=== PATIENT | female | born 1955 | race Asian ===

== ENCOUNTER → 2017-06-10 06:00 | Outpatient (CLI) | payer OTHER, SELFPAY ==
[2017-06-09 15:01] LABS: Absolute Lymphocyte Count 1.86 X10^3/ul (0.83-4.51); Absolute Neutrophil Count 2.7 X10^3/uL (2.0-7.7); Basophil# 0.05 X10^3/uL; Eosinophil# 0.09 X10^3/uL; Eosinophils% 1.7 % (0-5); Hematocrit 38.5 % (37-47); Lymphocyte # 1.86 X10^3/ul (4.0); Lymphocyte % 35.9 % (19-41); Mean Corp Hgb Conc 33.8 g/gl (32-36); Mean Corpuscular Hgb 31.4 pg (27.0-32.0); Mean Platelet Vol. 10.8 fl (6.2-12.0); Monocyte% 9.7 % (0-10); Neutrophil # 2.67 X10^3/uL (2.7-7.7); Neutrophil % 51.5 % (47-70); Platelet Count 238 K/mm3 (150-450); RBC Distribution Width CV 12.1 % (11.6-14.6); RBC Distribution Width SD 40.5 fl (35.1-43.9); Red Blood Count 4.14 M/mm3 (4.2-5.4); White Blood Count 5.2 K/mm3 (4.4-11.0)
[2017-06-09 15:03] LABS: POSITIVE COUNT NO; POSITIVE DIFFERENTIAL NO; POSITIVE MORPHOLOGY NO
[2017-06-09 15:23] LABS: AST(SGOT) 14 U/L (15-37); Alanine Aminotransfer ALT/SGPT 21 U/L (13-56); Albumin, Serum 3.9 g/dL (3.2-5.0); Alkaline Phosphatase 89 U/L (45-117); Anion Gap 7 (5-15); BUN 16 mg/dL (7-18); BUN/Creat Ratio 32.9 RATIO (10-20); Calcium,Total 8.9 mg/dL (8.5-10.1); Chloride 105 mmol/L (98-107); Creatinine, Serum 0.49 mg/dL (0.55-1.02); EST Glomerular Filtration Rate 137 mL/min (>60); Est Glom Filt Rate - Afr Amer 166 mL/min (>60); Globulin 3.8 g/dL (2.2-4.2); Glucose 82 mg/dL (70-110); Potassium 3.8 mmol/L (3.5-5.1); Protein, Total 7.7 g/dL (6.4-8.2); Sodium Level 139 mmol/L (136-145)
[2017-06-09 16:34] VITALS: BMI 21.6
--- NOTE | 2017-06-10 07:00 | CT_ITS ---
STUDY: CT ABDOMEN AND PELVIS WITH CONTRAST REASON FOR EXAM: Female, 61 years old. Follow-up examination for ovarian cancer. RADIATION DOSAGE (If Supplied By Facility): CTDIvol = ( 10.11 ) mGy, DLP = ( 866.29 ) mGycm TECHNIQUE: Transaxial images were obtained from the dome of the diaphragm to the symphysis pubis without oral contrast. 75 ml of Isovue 300 contrast was administered. Sagittal and coronal images were reconstructed. Individualized dose optimization techniques were used for this CT. COMPARISON: Comparison is made with prior study dated December 13, 2016. FINDINGS: The visualized lung bases are unremarkable. The visualized portions of the heart are within normal limits. Normal liver. Normal gallbladder and extrahepatic biliary system. Normal spleen. Normal pancreas. Normal bilateral adrenal glands. There is a 1.4 cm cyst in the lower pole of the right kidney. Normal left kidney. Normal visualized stomach. Normal small intestine. Normal colon. The appendix is visualized and appears normal. There is scattered atherosclerotic calcification of the abdominal aorta, without a demonstrated aneurysm. Normal inferior vena cava. Surgical clips are seen in the retroperitoneal region most likely secondary to prior lymphadenectomy. Normal urinary bladder. There is absence of the uterus consistent with a prior hysterectomy. Normal abdominal wall. There are degenerative changes of the visualized lumbar spine. There is straightening of the normal lumbar lordosis. CT/Abdomen/Pelvis WITH Contrast IMPRESSION: Small right renal cyst. No acute abnormality is seen. Electronically Signed: Kraig Molina MD at 14:28 EST Tel [phone], Service support ,
--- NOTE | 2017-06-10 07:00 | CT_ITS ---
STUDY: CT CHEST WITH CONTRAST REASON FOR EXAM: Female, 61 years old. Follow-up for ovarian cancer. RADIATION DOSAGE (If Supplied By Facility): CTDIvol = ( 10.11 ) mGy, DLP = ( 866.29 ) mGycm TECHNIQUE: Transaxial imaging was performed following intravenous administration of 75 ml of Isovue 300 contrast material. Multiplanar coronal and sagittal images were reformatted. Individualized dose optimization techniques were used for this CT. COMPARISON: Comparison is made with prior study dated December 13, 2016. FINDINGS: Minimal scarring in the left upper lobe. This is unchanged. There is a 1 cm faint nodular density in the superior segment of the right lower lobe as seen on axial image #58. This previously measured 7.3 mm. Stable 5 mm nodule in the posterior aspect of the right lower lobe. There is no demonstrated pleural abnormality. Normal heart and pericardium. Normal mediastinum. Normal hilar regions. Normal enhanced pulmonary arteries. Normal aorta arch and descending thoracic aorta. There is demineralization of the thoracic spine. There is no demonstrated abnormality of the visualized upper abdomen. CT/Chest WITH Contrast IMPRESSION: Slight increase in size of the nodular density in the superior segment of the right lower lobe. Further follow-up is recommended. Electronically Signed: Kraig Molina MD at 14:36 EST Tel [phone], Service support ,
[2017-06-11 09:00] LABS: Cancer Antigen 125 2303 5.8 U/mL (0.0-38.1)
== END ==
PROVIDERS: Family Provider Family Medicine; PCP Family Medicine; Visit Provider Internal Medicine Medical Oncology
DX: C56.9 Malignant neoplasm of unspecified ovary (principal)
CPT/HCPCS: 36415; 71260; 74177; 80053; 85025; 86304; Q9967; A4216

== ENCOUNTER → 2017-09-19 06:55 | Outpatient (CLI) | payer OTHER, SELFPAY ==
--- NOTE | 2017-09-19 06:57 | CT_ITS ---
STUDY: CT CHEST WITHOUT CONTRAST REASON FOR EXAM: Female, 61 years old. Follow-up for pulmonary nodule. History of ovarian cancer. RADIATION DOSAGE (If Supplied By Facility): CTDIvol = ( 7.06 ) mGy, DLP = ( 268.32 ) mGycm TECHNIQUE: Transaxial imaging was performed without the administration of intravenous contrast material. Multiplanar coronal and sagittal images were reformatted. Individualized dose optimization techniques were used for this CT. COMPARISON: Comparison is made with prior study dated June 10, 2017. FINDINGS: Stable small benign-appearing bilateral axillary lymph nodes. Mild degree of emphysematous changes in the upper lobes. Stable mild degree of linear scarring in the left apex and left upper lobe. Faint nodular density seen in the lateral aspect of the superior segment of the right lower lobe as seen on axial image #60. It presently measures 1.1 cm. Stable 5 mm noncalcified nodule in the posterior aspect of the right lower lobe as seen on axial image #79. There is no demonstrated pleural abnormality. Normal heart and pericardium. There are multiple small lymph nodes within the mediastinum, which are normal in size and morphology most compatible with reactive lymph hyperplasia. Normal hilar regions. Normal unenhanced pulmonary arteries. There is atherosclerotic calcification of the aortic arch arch . There is demineralization of the thoracic spine. There is no demonstrated abnormality of the visualized upper abdomen. CT/Chest without Contrast IMPRESSION: Stable examination of the nodule seen in the right lower lobe. Electronically Signed: Kraig Molina MD at 10:32 EDT Tel [phone], Service support ,
== END ==
PROVIDERS: Family Provider Family Medicine; PCP Family Medicine; Visit Provider Internal Medicine Medical Oncology
DX: C56.9 Malignant neoplasm of unspecified ovary (principal); R91.8 Other nonspecific abnormal finding of lung field
CPT/HCPCS: 71250

== ENCOUNTER → 2017-10-06 10:21 | Outpatient (CLI) | payer OTHER, SELFPAY ==
--- NOTE | 2017-10-06 10:00 | PET_ITS ---
EXAMINATION: FDG PET CT INDICATIONS: A 61-year-old female with history of ovarian carcinoma presenting for restaging examination and evaluation of pulmonary nodularity. COMPARISON EXAMINATION: CT of the chest report dated 09/19/17, CT of the abdomen and pelvis report dated 06/10/17. INDEX LESION SIZE SUV INTERPRETATION Right mid posterior hemithorax pulmonary parenchyma, right lower lobe 10.3 mm (frame 179) 0.9 Quantitative criteria for viable neoplasm are not fulfilled, sequential radiologic investigation recommended TECHNIQUE: Following the intravenous administration of 16.83 mCi of F-18 deoxyglucose via the right antecubital fossa, multiplanar image acquisitions of the neck, chest, abdomen and pelvis to level of mid thigh, obtained at one hour post radiopharmaceutical administration contemporaneously interpreted with the current CT of the neck, chest, abdomen and pelvis to level of mid thigh, dated 10/06/[address] of the chest report dated 09/19/17, CT of the abdomen and pelvis report dated 06/10/17 reveal: SERUM GLUCOSE LEVEL: 81 mg/dl. HEIGHT: 65 inches. WEIGHT: 130 lbs. FINDINGS: 1. Subtle increased glucose metabolism is defined in the right mid posterior hemithorax pulmonary parenchyma, superior segment of the right lower lobe generating a calculated maximum standard uptake value of 0.9. The maximal axial diameter of the corresponding parenchymal density on preview of CT of the thorax dated 10/06/17 is 10.3 mm (transverse). 2. Normal physiologic distribution of the radiopharmaceutical is apparent in the hepatic (2.5) and splenic parenchyma, both renal units, bladder and visualized intestinal tract. There is uniform distribution of the radiopharmaceutical concentration compared on the cerebellar hemispheres and cerebral cortex. Diffuse intestinal tract activity is noted throughout all four quadrants of the abdominal-pelvic retroperitoneum, mesentery consistent with normal physiologic distribution of the radiopharmaceutical. Prominent glucose concentration is observed in the descending thoracic aorta. Pertinent CT findings are as follows. CHEST: An additional subcentimeter parenchymal density noted in the lower posterobasilar lung zone and left upper anterior lung field demonstrate no evidence of discernible, quantitatively significant increased glucose metabolism. Subcentimeter bilateral axillary soft tissue densities are non-glucose avid. Atherosclerotic calcification is defined in the thoracic aorta without evidence of dilatation, aneurysm formation. Coronary arterial calcification is observed. ABDOMEN AND PELVIS: Atherosclerotic calcification is defined in the abdominal aorta without evidence of dilatation, aneurysm formation. Pelvic arterial calcification is observed. The uterus appears surgically absent. Right-left inguinal soft tissue densities with fatty hilus formation are ametabolic. SKELETAL: Degenerative changes defined in the cervical, thoracic and lumbar spine demonstrate no evidence for glucose hypermetabolism. PET/PET/CT Tumor Base -Thigh Init IMPRESSION: 1. NEGATIVE EXAMINATION. There is no definitive quantitative scintigraphic evidence of recurrent-metastatic viable neoplasm. 2. Subtle increased glucose concentration observed in the right lower posterior hemithorax pulmonary parenchyma, right lower lobe does not fulfill quantitative criteria for viable neoplasm. (Kern et al, Annals of Internal Medicine, 138:724, 2003). 3. Metabolic and/or anatomic stability may be ensured in the right lower lobe MILDLY HYPERMETABOLIC focus with repeat FDG PET study and/or CT of the thorax in three months. (Xiu, Journal of Nuclear Medicine 45:88, P2004. Carl, Seminars in Thoracic and Cardiovascular Surgery 14:292, 2002). 4. Anatomic stability may be ensured in the AMETABOLIC REMAINING bilateral hemithorax parenchymal densities with repeat CT of the chest in three months if clinically indicated. (Carl, Seminars in Thoracic and Cardiovascular Surgery 14:292, 2002). 5. Prominent glucose concentration observed in the descending thoracic aorta is commensurate with activated leukocytes associated with atherosclerotic plaque formation. (Ji et al, Clinical Nuclear Medicine 29:93, 2004). Electronic Signature Janak Mixon D.O. Electronically Signed: Janak Mixon DO at 23:51 EDT Tel , Service support ,
== END ==
PROVIDERS: Family Provider Family Medicine; PCP Family Medicine; Visit Provider Internal Medicine Medical Oncology
DX: C56.1 Malignant neoplasm of right ovary (principal); R91.8 Other nonspecific abnormal finding of lung field
CPT/HCPCS: 78815; A9552; A4216

== ENCOUNTER → 2018-01-10 07:09 | Outpatient (CLI) | payer OTHER, SELFPAY | PROVIDERS: Family Provider Family Medicine; PCP Family Medicine; Visit Provider Internal Medicine Medical Oncology | DX: R91.1 Solitary pulmonary nodule (principal); C56.9 Malignant neoplasm of unspecified ovary | CPT/HCPCS: 71250 ==

== ENCOUNTER → 2018-01-12 08:28 | Outpatient (CLI) | payer OTHER, SELFPAY ==
[2018-01-13 11:31] LABS: Cancer Antigen 125 7.4 U/mL (0.0-38.1)
== END ==
PROVIDERS: Family Provider Family Medicine; PCP Family Medicine; Visit Provider Internal Medicine Medical Oncology
DX: C56.9 Malignant neoplasm of unspecified ovary (principal); R91.1 Solitary pulmonary nodule
CPT/HCPCS: 36415; 86304

== ENCOUNTER → 2018-02-27 07:54 | Outpatient (CLI) | payer OTHER, SELFPAY ==
--- NOTE | 2018-02-27 16:13 | PFTCOMP_ITS ---
COMPLETE PULMONARY FUNCTION TEST INTERPRETATION Brief HPI: Patient is a 62 year old female, currently under the care of [facility]ac[facility], who presents to [facility] for complete pulmonary function tests secondary to diagnosis of lung nodule. Respiratory therapist reports good effort and reproducible results. Interpretation: Forced expiration spirometry shows no large airways obstructive ventilatory defect with an FEV1 of 82% predicted. There is no significant bronchodilator response by strict ATS criteria. Spirograms are of good quality and plateau normally. The respiratory flow volume loop shows a normal pattern. Lung volumes by body plethysmography show an elevated total lung capacity at 7.36 L, 145% predicted. All other lung volumes are within increased symmetrically. Lung volumes appear to be supraphysiologic and may not be accurate. Diffusion capacity by carbon monoxide is normal at 107% predicted. The airway resistance is normal. No previous pulmonary function tests were available for review. Impression: These pulmonary function tests are grossly within normal limits. Lung volumes appear to be supraphysiologic and should be interpreted with caution. Patient would likely tolerate operative intervention if indicated.
== END ==
PROVIDERS: Family Provider Family Medicine; PCP Family Medicine
DX: R91.1 Solitary pulmonary nodule (principal)
CPT/HCPCS: 94060; 94726; 94729

== ENCOUNTER → 2018-02-28 13:29 | Outpatient (CLI) | payer OTHER, SELFPAY ==
--- NOTE | 2018-02-28 13:38 | STE_ITS ---
Reason For Study: ATKINSON, Lung Nodule Stress Results Protocol: Stress Echocardiogram Maximum Predicted HR: 157 bpm Target HR: 133 bpm% Maximum Pr edicted HR: 103 % DurationHeart Rate Stage (mm:ss) (bpm) BP BASELINE 63 126/78 LA PROTOCOL- STAGE 1 3:00 97 150/80 LA PROTOCOL- STAGE 2 3:00 11 8 152/80 LA PROTOCOL- STAGE 3 3:00 14 4 154/76 LA PROTOCOL- STAGE 4 1:00 16 2 / RECOVERY 81 118/70 Stress Duration: 10:00 mm:ss Maximum Stress HR: 162 bpmME TS: 13 Baseline Echocardiogram Findings Stress Echo Wall motion Data Resting WMIntermediate WMStress WM Resting Wall Motion Wall Motion Stress All segments Normal. All segments Hyperkinetic. Ejection Fraction 60 %. Ejection Fraction 75 %. Stress Results Heart rate response: appropriate Blood pressure response: normal resting BP - appropriate response Arrhythmias: none Functional capacity: good Stopped secondary to: leg discomfort. EKG Data ECG Baseline: NSR. ECG Stress: somatic / motion artifact with beat to beat nonspecific ST segment variability. Symptoms with Stress No c/o chest discomfort during exercise / recovery. Interpretation Summary Negative (Adequate) Stress Echocardiogram Ordering Physician: Tonya Cummins Referring Physician: Tonya Cummins Performed By: Mark Kovacs RCS
== END ==
PROVIDERS: Family Provider Family Medicine; PCP Family Medicine
DX: R91.1 Solitary pulmonary nodule (principal); R06.09 Other forms of dyspnea
CPT/HCPCS: 93017; 93350

== ENCOUNTER → 2018-03-10 14:35 | Outpatient (CLI) | payer OTHER, SELFPAY ==
--- NOTE | 2018-03-10 14:37 | BI_ITS ---
MAMMOGRAPHY - BILATERAL SCREENING REASON FOR EXAM: Female, 62 years old. Routine annual screening examination. PERTINENT HISTORY: Non-contributory. TECHNIQUE: Digital bilateral breast seema (3D mammographic acquisition) in the CC and MLO projections. 2-D mediolateral oblique (MLO) and craniocaudad (CC) views of both breasts were obtained. CAD: Full Field Digital Mammography with Computer Added Detection was performed. COMPARISON: Comparison is made with prior examination dated January 28, 2017 and January 28, 2016. FINDINGS: Breast Composition: The breasts are heterogeneously dense, which may obscure small masses. There are no dominant masses or suspicious calcifications. Stable benign-appearing bilateral axillary lymph nodes. No other significant abnormalities are identified. There has been no significant change since the prior study. BI/SCREENING MAMM (CAD), BILAT IMPRESSION: Stable bilateral screening mammogram. Yearly follow-up mammogram recommended. (A) ASSESSMENT CATEGORY: BIRADS Category 2: Benign. A letter regarding these results will be sent to the patient by the facility within 30 days. Approximately 10% of breast cancers are not detected by mammography. A normal mammogram should not delay biopsy of a clinically suspicious abnormality. [id number] Electronically Signed: Kraig Molina MD at 15:34 EDT Tel [phone], Service support ,
== END ==
PROVIDERS: Family Provider Family Medicine; PCP Family Medicine; Referring Provider Family Medicine; Visit Provider Family Medicine
DX: Z12.31 Encounter for screening mammogram for malignant neoplasm of breast (principal)
CPT/HCPCS: 77063; 77067

== ENCOUNTER → 2018-06-12 06:54 | Outpatient (CLI) | payer OTHER, SELFPAY ==
--- NOTE | 2018-06-12 06:56 | CT_ITS ---
STUDY: CT CHEST WITHOUT CONTRAST REASON FOR EXAM: Female, 62 years old. Lung nodule follow-up. The patient has history of ovarian cancer. RADIATION DOSAGE (If Supplied By Facility): CTDIvol = ( 6.60 ) mGy, DLP = ( 255.66 ) mGycm TECHNIQUE: Transaxial imaging was performed without the administration of intravenous contrast material. Multiplanar coronal and sagittal images were reformatted. Individualized dose optimization techniques were used for this CT. COMPARISON: Comparison is made with prior examination to January 10, 2018. FINDINGS: Stable small benign-appearing bilateral axillary lymph nodes. Stable scarring in the upper lobes slightly more prominent on the left side. Stable faint nodular density in the posterolateral aspect of the superior segment of the right lower lobe as seen on axial image #56. This measures 1.3 cm. Stable faint 5 mm nodule in the posterior lateral aspect of the right lower lobe as seen on axial image #77. There is no demonstrated pleural abnormality. Normal heart and pericardium. There are multiple small lymph nodes within the mediastinum, which are normal in size and morphology most compatible with reactive lymph hyperplasia. Normal hilar regions. Normal unenhanced pulmonary arteries. There is atherosclerotic calcification of the aortic arch . There is demineralization of the thoracic spine. There is no demonstrated abnormality of the visualized upper abdomen. CT/Chest without Contrast IMPRESSION: Stable examination. Electronically Signed: Kraig Molina MD at 9:16 EST , Service support ,
[2018-06-12 07:28] LABS: Absolute Lymphocyte Count 1.56 X10^3/ul (0.83-4.51); Absolute Neutrophil Count 2.4 X10^3/uL (2.0-7.7); Basophil# 0.04 X10^3/uL; Basophil% 0.9 % (0-1); Eosinophil# 0.05 X10^3/uL; Eosinophils% 1.1 % (0-5); Hematocrit 42.2 % (37-47); Hemoglobin 14.2 g/dl (12.0-15.0); Lymphocyte # 1.56 X10^3/ul (4.0); Lymphocyte % 34.8 % (19-41); Mean Corp Hgb Conc 33.6 g/gl (32-36); Mean Corpuscular Hgb 31.3 pg (27.0-32.0); Mean Platelet Vol. 9.9 fl (6.2-12.0); Monocyte% 8.9 % (0-10); Neutrophil # 2.42 X10^3/uL (2.7-7.7); Neutrophil % 54.1 % (47-70); Platelet Count 245 K/mm3 (150-450); RBC Distribution Width CV 12.3 % (11.6-14.6); RBC Distribution Width SD 41.4 fl (35.1-43.9); Red Blood Count 4.54 M/mm3 (4.2-5.4); White Blood Count 4.5 K/mm3 (4.4-11.0)
[2018-06-12 07:29] LABS: POSITIVE COUNT NO; POSITIVE DIFFERENTIAL NO; POSITIVE MORPHOLOGY NO
[2018-06-12 08:51] LABS: AST(SGOT) 16 U/L (15-37); Alanine Aminotransfer ALT/SGPT 20 U/L (13-56); Albumin, Serum 3.9 g/dL (3.2-5.0); Alkaline Phosphatase 93 U/L (45-117); Anion Gap 8 (5-15); BUN 13 mg/dL (7-18); BUN/Creat Ratio 22.1 RATIO (10-20); Calcium,Total 8.8 mg/dL (8.5-10.1); Chloride 109 mmol/L (98-107); Creatinine, Serum 0.59 mg/dL (0.55-1.02); EST Glomerular Filtration Rate 109 mL/min (>60); Est Glom Filt Rate - Afr Amer 132 mL/min (>60); Globulin 3.9 g/dL (2.2-4.2); Glucose 91 mg/dL (74-106); Potassium 3.4 mmol/L (3.5-5.1); Protein, Total 7.8 g/dL (6.4-8.2); Sodium Level 141 mmol/L (136-145)
[2018-06-12 15:06] LABS: Xtra Tube EP Lab EXTRA TUBE
[2018-06-13 10:44] LABS: Cancer Antigen 125 6.9 U/mL (0.0-38.1)
== END ==
PROVIDERS: Family Provider Family Medicine; PCP Family Medicine; Referring Provider Internal Medicine Medical Oncology; Visit Provider Internal Medicine Medical Oncology
DX: R91.8 Other nonspecific abnormal finding of lung field (principal); Z85.43 Personal history of malignant neoplasm of ovary
CPT/HCPCS: 36415; 71250; 80053; 85025; 86304

== ENCOUNTER → 2018-12-11 | Outpatient (CLI) | payer OTHER, SELFPAY ==
[2018-11-21 10:58] VITALS: BMI 20.4
[2018-12-12 16:50] LABS: Cancer Antigen 125 8.8 U/mL (0.0-38.1)
== END | disposition home or self-care (01) ==
PROVIDERS: Family Provider Family Medicine; PCP Family Medicine; Referring Provider Internal Medicine Medical Oncology; Visit Provider Internal Medicine Medical Oncology
DX: Z85.43 Personal history of malignant neoplasm of ovary (principal)
CPT/HCPCS: 36415; 86304

== ENCOUNTER → 2019-01-31 08:13 | Outpatient (CLI) | payer OTHER, SELFPAY ==
[2018-11-21 10:58] VITALS: BMI 20.4
[2019-01-31 09:12] LABS: Cholesterol 203 mg/dL (200); High Density Lipoprotein 57 mg/dL; Triglycerides 63 mg/dL; Very Low Density Lipoprotein 13 mg/dL (5-40)
== END ==
LOC: LAB.FUTURE 08:14 → LAB 08:18
PROVIDERS: Family Provider Family Medicine; PCP Family Medicine; Referring Provider Family Medicine; Visit Provider Family Medicine
DX: E78.5 Hyperlipidemia, unspecified (principal)
CPT/HCPCS: 36415; 80061

== ENCOUNTER → 2019-03-19 14:30 | Outpatient (CLI) | payer OTHER, SELFPAY ==
[2018-11-21 10:58] VITALS: BMI 20.4
--- NOTE | 2019-03-19 14:32 | BI_ITS ---
MAMMOGRAPHY - BILATERAL SCREENING REASON FOR EXAM: Female, 63 years old. Routine annual screening examination. PERTINENT HISTORY: Non-contributory. TECHNIQUE: Digital bilateral breast kristopher (3D mammographic acquisition) in the CC and MLO projections. 2-D mediolateral oblique (MLO) and craniocaudad (CC) views of both breasts were obtained. CAD: Full Field Digital Mammography with Computer Added Detection was performed. COMPARISON: Comparison is made with prior study dated March 10, 2018 and January 28, 2017. FINDINGS: Breast Composition: The breasts are heterogeneously dense, which may obscure small masses. There are no dominant masses or suspicious calcifications. Stable small bilateral benign-appearing axillary lymph nodes. No other significant abnormalities are identified. There has been no significant change since the prior study. BI/SCREEN MAMM (CAD) W/KRISTOPHER BILAT IMPRESSION: Stable bilateral screening mammogram. Yearly follow-up mammogram recommended. (A) ASSESSMENT CATEGORY: BIRADS Category 2: Benign. A letter regarding these results will be sent to the patient by the facility within 30 days. Approximately 10% of breast cancers are not detected by mammography. A normal mammogram should not delay biopsy of a clinically suspicious abnormality. [id number] Electronically Signed: Kraig Molina, at 15:25 EST , Service support ,
== END ==
PROVIDERS: Family Provider Family Medicine; PCP Family Medicine; Referring Provider Family Medicine; Visit Provider Family Medicine
DX: Z12.31 Encounter for screening mammogram for malignant neoplasm of breast (principal)
CPT/HCPCS: 77063; 77067

== ENCOUNTER → 2019-06-09 08:37 | Outpatient (CLI) | payer OTHER, SELFPAY ==
[2018-11-21 10:58] VITALS: BMI 20.4
[2019-06-09 10:22] LABS: Absolute Lymphocyte Count 1.97 X10^3/uL (0.83-4.51); Absolute Neutrophil Count 2.1 X10^3/uL (2.0-7.7); Basophil# 0.05 X10^3/uL; Basophil% 1.1 % (0-1); Eosinophil# 0.05 X10^3/uL; Eosinophils% 1.1 % (0-5); Hematocrit 41.4 % (37-47); Hemoglobin 13.6 g/dL (12.0-15.0); Lymphocyte # 1.97 X10^3/ul (4.0); Lymphocyte % 42.6 % (19-41); Mean Corp Hgb Conc 32.9 g/dL (32-36); Mean Corpuscular Hgb 31.3 pg (27.0-32.0); Mean Corpuscular Volume 95.4 fL (81-99); Mean Platelet Vol. 10.4 fl (6.2-12.0); Monocyte# 0.45 X10^3/uL; Monocyte% 9.7 % (0-10); NRBC Flagged by Analyzer 0 % (0-5); Neutrophil # 2.09 X10^3/uL (2.7-7.7); Neutrophil % 45.3 % (47-70); Platelet Count 236 K/mm3 (150-450); RBC Distribution Width CV 12.1 % (11.6-14.6); RBC Distribution Width SD 42.1 fl (35.1-43.9); Red Blood Count 4.34 M/mm3 (4.2-5.4); White Blood Count 4.6 K/mm3 (4.4-11.0)
[2019-06-09 10:48] LABS: ALB/GLOB Ratio 1.1 RATIO (0.9-2.4); AST(SGOT) 11 U/L (15-37); Alanine Aminotransfer ALT/SGPT 20 U/L (13-56); Albumin, Serum 3.7 g/dL (3.2-5.0); Alkaline Phosphatase 91 U/L (45-117); Anion Gap 4 (5-15); BUN 13 mg/dL (7-18); BUN/Creat Ratio 25.8 RATIO (10-20); Calcium,Total 8.8 mg/dL (8.5-10.1); Chloride 110 mmol/L (98-107); Cholesterol 208 mg/dL (200); EST Glomerular Filtration Rate 131 mL/min (>60); Est Glom Filt Rate - Afr Amer 158 mL/min (>60); Globulin 3.5 g/dL (2.2-4.2); Glucose 86 mg/dL (74-106); High Density Lipoprotein 71 mg/dL; Potassium 3.7 mmol/L (3.5-5.1); Protein, Total 7.2 g/dL (6.4-8.2); Sodium Level 142 mmol/L (136-145); Triglycerides 52 mg/dL; Very Low Density Lipoprotein 10 mg/dL (5-40)
[2019-06-10 15:11] LABS: Cancer Antigen 125 7.4 U/mL (0.0-38.1)
== END ==
PROVIDERS: PCP Family Medicine; Referring Provider Internal Medicine Medical Oncology; Visit Provider Internal Medicine Medical Oncology
DX: R91.8 Other nonspecific abnormal finding of lung field (principal); Z85.43 Personal history of malignant neoplasm of ovary
CPT/HCPCS: 36415; 80053; 80061; 85025; 86304

== ENCOUNTER → 2019-06-11 06:50 | Outpatient (CLI) | payer OTHER, SELFPAY ==
[2018-11-21 10:58] VITALS: BMI 20.4
--- NOTE | 2019-06-11 06:50 | CT_ITS ---
STUDY: CT ABDOMEN AND PELVIS WITH CONTRAST REASON FOR EXAM: Female, 63 years old. OVARIAN CA FOLLOW UP -- LUNG NODULE FOLLOW UP -- SURG-NAVIN/BSO RADIATION DOSAGE (If Supplied By Facility): CTDIvol = ( 8.34 ) mGy, DLP = ( 600.73 ) mGycm TECHNIQUE: Transaxial images were obtained from the dome of the diaphragm to the symphysis pubis without oral contrast. IV 100mL Isovue-300 was administered. Sagittal and coronal images were reconstructed. Individualized dose optimization techniques were used for this CT. COMPARISON: Comparison is made with prior examination dated June 10, 2017. FINDINGS: The visualized lung bases are unremarkable. The visualized portions of the heart are within normal limits. Normal liver. Normal gallbladder and extrahepatic biliary system. Normal spleen. Normal pancreas. Normal bilateral adrenal glands. Stable 1.4 cm cyst in the lower pole of the right kidney. Normal left kidney. Normal visualized stomach. Normal small intestine. Normal colon. The appendix is visualized and appears normal. Normal abdominal aorta. Normal inferior vena cava. Normal retroperitoneum. Normal urinary bladder. There is absence of the uterus consistent with a prior hysterectomy. Normal abdominal wall. Loss of the normal lumbar lordosis. Disc space narrowing with spondylosis and disc degeneration at the L4-L5 and L5-S1 levels. CT/Abdomen/Pelvis WITH Contrast IMPRESSION: Small right renal cyst. No acute abnormality is seen. Electronically Signed: Kraig Molina, at 9:07 EST , Service support ,
--- NOTE | 2019-06-11 06:50 | CT_ITS ---
STUDY: CT CHEST WITH CONTRAST REASON FOR EXAM: Female, 63 years old. OVARIAN CA FOLLOW UP -- LUNG NODULE FOLLOW UP -- SURG-NAVIN/BSO RADIATION DOSAGE (If Supplied By Facility): CTDIvol = ( 8.34 ) mGy, DLP = ( 600.73 ) mGycm TECHNIQUE: Transaxial imaging was performed following intravenous administration of IV 100mL Isovue-300. Multiplanar coronal and sagittal images were reformatted. Individualized dose optimization techniques were used for this CT. COMPARISON: Comparison is made with prior examination dated June 12, 2018. FINDINGS: Stable small bilateral benign-appearing axillary lymph nodes. Stable minimal increased markings at the left lung apex suggestive of scarring. Stable 1.2 cm x 0.8 cm groundglass nodular appearance in the superior segment of the right lower lobe. This is unchanged. There is no demonstrated pleural abnormality. Normal heart and pericardium. There are multiple small lymph nodes within the mediastinum, which are normal in size and morphology most compatible with reactive lymph hyperplasia. Normal hilar regions. Normal enhanced pulmonary arteries. There is atherosclerotic calcification of the aortic arch . There is demineralization of the thoracic spine. There is no demonstrated abnormality of the visualized upper abdomen. CT/Chest WITH Contrast IMPRESSION: Stable examination. Electronically Signed: Kraig Molina, at 9:21 EST , Service support ,
== END ==
PROVIDERS: Family Provider Family Medicine; PCP Family Medicine; Referring Provider Internal Medicine Medical Oncology; Visit Provider Internal Medicine Medical Oncology
DX: C56.9 Malignant neoplasm of unspecified ovary (principal); R91.1 Solitary pulmonary nodule
CPT/HCPCS: 71260; 74177; Q9967

== ENCOUNTER 2020-01-18 07:43 | Inpatient (IN) | payer MEDICARE, SELFPAY ==
[2019-06-14 15:08] VITALS: BMI 20.6
[2020-01-18 07:44] VITALS: BP 133/72; PULSE 67; RESP 18; TEMP 36.4; O2SAT 100; BMI 20.6
--- NOTE | 2020-01-18 08:07 | CT_ITS ---
STUDY: CT ABDOMEN AND PELVIS WITHOUT CONTRAST REASON FOR EXAM: Female, 64 years old. DIFFUSE ABD PAIN, N/V/D STARTING LAST NIGHT. H/O SBO, patient has a history of ovarian cancer. RADIATION DOSAGE (If Supplied By Facility): CTDIvol = ( 11.595 ) mGy, DLP = ( 461.38 ) mGycm TECHNIQUE: Transaxial images were obtained from the dome of the diaphragm to the symphysis pubis without oral contrast, and without intravenous contrast. Sagittal and coronal images were reconstructed. Individualized dose optimization techniques were used for this CT. COMPARISON: Comparison is made with prior study dated 06/11/2019. FINDINGS: The visualized lung bases are unremarkable. The visualized portions of the heart are within normal limits. Normal liver. Normal gallbladder and extrahepatic biliary system. Normal spleen. Normal pancreas. Normal bilateral adrenal glands. Stable 1.4 cm cyst in the lower pole of the right kidney. Normal left kidney. Normal visualized stomach. There is no evidence of fluid-filled distended small bowel loops in the distal small bowel. Gas and fecal material are seen in the right hemicolon. Normal colon. The appendix is visualized and appears normal. There is scattered atherosclerotic calcification of the abdominal aorta, without a demonstrated aneurysm. Normal inferior vena cava. There is borderline retroperitoneal lymphadenopathy with enlarged nodes no greater than 10mm in the short axis diameter. Surgical clips are seen in the retroperitoneal region. Normal urinary bladder. There is absence of the uterus consistent with a prior hysterectomy. Small amount of free fluid is seen within the pelvis. Normal abdominal wall. Disc space narrowing and degeneration at the L4-L5 and L5-S1 levels. Straightening of the normal lumbar lordosis. CT/Abdomen/Pelvis W IV Cont ONLY IMPRESSION: Findings suggestive of an early or partial distal small bowel obstruction. A small amount of the free fluid is seen in the pelvis. Stable small right renal cyst. Electronically Signed: Kraig Molina, at 10:11 EDT , Service support ,
--- NOTE | 2020-01-18 08:37 | ED.VISSUMM ---
- ER Visit Summary Date of Service: 01/18/20 Chief Complaint: Abdominal pain, nausea, vomiting, and diarrhea History of Present Illness: The patient is a [address] Canales. She reports that yesterday at 8:30 PM she started not feeling well. She has diffuse crampy, aching abdominal pain that was 8 of 10 at worst and 3 out of 10 currently. Is worsened by nothing including movement. Is also relieved by nothing. She is been nauseated and vomited once. No blood in her emesis. She is had 5-6 episodes of loose stool. No blood in her stools or black tarry stools. She denies any dysuria or frequency. She reports has had similar symptoms approximately 3 years ago with a small bowel obstruction. Patient reports that she was frying peanuts yesterday and ate too many. Patient denies sick contacts. Has not been camping out of the country. Does not drink well water. No recent antibiotic use. Physical Examination: Vitals: Stable. Afebrile. General: Well-nourished and well-developed. Head: Normocephalic atraumatic. Neck: Supple, no lymphadenopathy. No JVD. Nontender. Cardiovascular: Regular rate and rhythm. No murmurs. Respiratory: No respiratory distress. Clear to auscultation bilaterally. Abdominal: Soft, mild diffuse tenderness to palpation, nondistended, hypoactive bowel sounds. No guarding, rebound, or peritoneal signs. Back: Nontender. Extremities: Nontender, no edema. Skin: Normal color, no rash. Neurologic: Alert and oriented ?3. Cranial nerves II through XII are intact. Normal strength and sensation. Psych: Normal affect. Test Results: CBC shows segmented neutrophils 83 lymphocytes 13. Chem-7 shows a chloride of 110 and CO2 of 20. LFTs are normal. Lipase is 62. UA is negative for infection. Clinical Impression(s) from Imaging Studies Abdomen/Pelvis CT 01/18/20 08:07 IMPRESSION: Findings suggestive of an early or partial distal small bowel obstruction. A small amount of the free fluid is seen in the pelvis. Stable small right renal cyst. Electronically Signed: Kraig Molina, at 10:11 EDT , Service support , Emergency Department Course and Treatment: Patient had an IV placed. She was given a liter normal saline. She was given morphine and Zofran IV. She is resting more comfortably. Treatment Plan: Patient was discussed with Dr. Luther and the hospitalist. She will be admitted for further evaluation and treatment. Disposition: Admitted in improved condition. Impression: 1. Partial small bowel obstruction. 2. Hyperchloremic metabolic acidosis. This note was generated with [employer] dictation software. It may contain incorrect words, spelling, and punctuation that were not noted in review of the chart prior to signing ED Disposition - Plan for ED Patient: Referrals: Selene Bridges DO [Primary Care Provider] -
[2020-01-18] MEDS: Morphine 4 MG/ML Syringe IV ×2 (08:41→09:57)
[2020-01-18] MEDS: Ondansetron 4 MG/2 ML Vial IV ×2 (08:41→11:46)
[2020-01-18] MEDS: 0.9% Normal Saline 1,000 ML 1000 ML IV (08:41)
[2020-01-18 08:54] LABS: Bacteria 0 SEEN /hpf (None Seen); Mucous, Urine 0 SEEN /hpf (<or=2+); White Blood Cells 0 SEEN /hpf (0-5)
[2020-01-18 08:58] LABS: Absolute Lymphocyte Count 1.25 X10^3/uL (0.83-4.51); Absolute Neutrophil Count 7.8 X10^3/uL (2.0-7.7); Basophil# 0.04 X10^3/uL; Basophil% 0.4 % (0-1); Hematocrit 45.7 % (37-47); Lymphocyte # 1.25 X10^3/ul (4.0); Lymphocyte % 13.2 % (19-41); Mean Corp Hgb Conc 32.8 g/dL (32-36); Mean Corpuscular Hgb 32.2 pg (27.0-32.0); Mean Corpuscular Volume 98.1 fL (81-99); Mean Platelet Vol. 10.5 fl (6.2-12.0); Monocyte# 0.31 X10^3/uL; Monocyte% 3.3 % (0-10); NRBC Flagged by Analyzer 0 % (0-5); Neutrophil # 7.84 X10^3/uL (2.7-7.7); Neutrophil % 82.9 % (47-70); Platelet Count 209 K/mm3 (150-450); RBC Distribution Width CV 12.2 % (11.6-14.6); RBC Distribution Width SD 44.4 fl (35.1-43.9); Red Blood Count 4.66 M/mm3 (4.2-5.4); White Blood Count 9.5 K/mm3 (4.4-11.0)
[2020-01-18 09:08] LABS: Color, Urine Yellow (Yellow); Glucose, Dipstick Normal (Normal); Ketone-Dipstick Negative (Negative); Leukocyte Esterase-Dipstick Negative /ul (Negative); Nitrite-Dipstick Negative (Negative); Occult Blood-Urine 25 /ul (Negative); Protein-Dipstick 30 mg/dl (Negative); Specific Gravity, Urine 1.015 (1.002-1.030); Urine Bilirubin Dipstick Negative (Negative); Urine Clarity Sl. Cloudy (Clear); Urine Urobilinogen Normal (Normal); Urine pH 6.5 (5.0 - 8.0)
[2020-01-18 09:15] LABS: Red Blood Cells-Urine 0-5 SEEN /hpf (0-5); Squamous Epithelial Cells - UA 0-5 SEEN /hpf (5-10)
[2020-01-18 09:20] LABS: AST(SGOT) 30 U/L (15-37); Alanine Aminotransfer ALT/SGPT 42 U/L (13-56); Albumin, Serum 3.9 g/dL (3.2-5.0); Alkaline Phosphatase 107 U/L (45-117); Anion Gap 7 (5-15); BUN 14 mg/dL (7-18); Calcium,Total 8.8 mg/dL (8.5-10.1); Chloride 110 mmol/L (98-107); Creatinine, Serum 0.61 mg/dL (0.55-1.02); EST Glomerular Filtration Rate 105 mL/min (>60); Est Glom Filt Rate - Afr Amer 127 mL/min (>60); Estimated Creatinine Clearance 81.57 ml/min; Globulin 4.1 g/dL (2.2-4.2); Glucose 116 mg/dL (74-106); Lipase 62 U/L (73-393); Potassium 3.7 mmol/L (3.5-5.1); Sodium Level 137 mmol/L (136-145)
[2020-01-18] MEDS: 0.9% Normal Saline 1,000 ML 999 ML IV (09:57)
[2020-01-18 10:00] VITALS: BP 141/65; PULSE 70; RESP 16; O2SAT 100
--- NOTE | 2020-01-18 10:33 | PCM.HP.STD ---
Problem List (1) DDD (degenerative disc disease), lumbar Status: Chronic (2) Lung nodule, multiple Status: Chronic (3) History of ovarian cancer Status: Chronic (4) Ovarian cancer Status: Chronic (5) SBO (small bowel obstruction) Status: Acute History of Present Illness Date of Admission: 01/18/20 Chief Complaint: Abdominal pain The patient is a 64 year old F 64-year-old lady with past medical history single for ovarian CA status post bilateral salpingo-oophorectomy and chemotherapy currently in remission who presents with abdominal pain. Patient pain started a day prior to coming in. Pain was located in the periumbilical region. Patient in certified ophthalmic technologist any associated worsening or relieving factors. She did however experience significant nausea and some vomiting. She had a similar presentation in April was in the . She presented to the emergency department imaging studies consistent with small bowel obstruction. Subsequently admitted to regular nursing for further management. Further questioning patient admitted to chills but no fever. Denied any cough no shortness of breath. Past Medical History Past Medical History (Chronic Problems): Chronic Problems (Last Reviewed 01/18/20 @ 11:[address] Rick Calderon MD) DDD (degenerative disc disease), lumbar (Chronic) Lung nodule, multiple (Chronic) History of ovarian cancer (Chronic) Ovarian cancer (Chronic) Medical History: Medical History (Last Reviewed 01/18/20 @ 11:[address] 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 Rick Calderon MD) History of dilation and curettage Z98.890 History of hysterectomy Z98.890, Z90.710 History of tubal ligation Z98.51 Smoking Status: Never smoker - *Family History Maternal Family History: Family History (Last Reviewed 01/18/20 @ 11:[address] Rick Calderon MD) Sister Cancer Mother Alzheimer disease Review of Systems Constitutional: Reports: Chills HEENT: Denies: Head Aches, Sinus Congestion, Sinus Drainage Cardiovascular: Denies: Chest Pain, Orthopnea, Palpitations, Paroxysmal Noc. Dyspnea Respiratory: Denies: Cough, Shortness of breath at rest, Shortness of breath upon exertion, Sputum production Gastrointestinal: Reports: Abdominal Pain, Dyspepsia, Nausea, Vomiting. Denies: Hematemesis, Hematochezia, Melena Genitourinary: Denies: Dysuria, Frequency, Hematuria, Urgency Musculoskeletal: Denies: Joint Pain, Joint Tenderness Skin: Denies: Rash Neurological: Denies: Focal weakness, Numbness, Tingling Psychiatric: Denies: Homicidal Ideations, Suicidal Ideations Hematologic/ Lymphatic: Denies: Easy Bruising, Easy Bleeding VTE Information - Inpt Only VTE Present on Admission: No VTE Mechan Device Prophylaxis: None VTE Pharm Prophylaxis ordered?: Yes Patient Problems: Active and Suspected Problems (Last Reviewed 01/18/20 @ 11:[address] Rick Calderon MD) SBO (small bowel obstruction) (Acute) Objective: GENERAL: cooperative HEENT: Atraumatic; EYES; Anicteric, Normal Conjunctiva NECK; supple, normal thyroid, RESPIRATORY: Diminished to auscultation CARDIOVASCULAR: Regular S1 S2, GI: Periumbilical tenderness : No Renal angle tenderness; EXTREMITIES: No edema, no clubbing, MUSCULOSKELETAL: no muscle waisting NEURO: Awake; no lateralizing signs. SKIN: No Rash PSYCH; Flat affect - Physical Exam Vitals/I&O's: Vital Signs Temp Pulse Resp BP Pulse Ox 97.6 F L 70 16 141/65 H 100 01/18/20 07:44 01/18/20 10:00 01/18/20 10:00 01/18/20 10:00 01/18/20 10:00 Oxygen Delivery Method Room Air Weight: 56.2 kg Body Mass Index (BMI) 20.6 Intake and Output for Last 24 Hours 01/16/20 01/17/20 01/18/20 23:59 23:59 23:59 Intake Total 1000 / 1000 Balance 1000 / 1000 Laboratory Results 01/18/20 08:38: Urine Color Yellow, Urine Clarity Sl. Cloudy, Urine pH 6.5, Ur Specific [place] 1.015, Urine Protein 30 H, Urine Glucose (UA) Normal, Urine Ketones Negative, Urine Occult Blood 25 H, Urine Nitrite Negative, Urine Bilirubin Negative, Urine Urobilinogen Normal, Ur Leukocyte Esterase Negative, Urine RBC 0-5 SEEN, Urine WBC 0 SEEN, Ur Squamous Epith Cells 0-5 SEEN, Urine Bacteria 0 SEEN, Urine Mucus 0 SEEN 01/18/20 08:45: WBC 9.5, RBC 4.66, Hgb 15.0, Hct 45.7, MCV 98.1, MCH 32.2 H, MCHC 32.8, RDW Std Deviation 44.4 H, RDW Coeff of Jermaine 12.2, Plt Count 209, MPV 10.5, Immature Gran % (Auto) 0.200, Neut % (Auto) 82.9 H, Lymph % (Auto) 13.2 L, [place] % (Auto) 3.3, Eos % (Auto) 0.0, Baso % (Auto) 0.4, Absolute Neuts (auto) 7.8 H, Absolute Lymphs (auto) 1.25, Nucleated RBC % 0 01/18/20 08:45: Sodium 137, Potassium 3.7, Chloride 110 H, Carbon Dioxide 20.0 L, Anion Gap 7, BUN 14, Creatinine 0.61, Estim Creat Clear Calc 81.57, Est GFR (MDRD) Af Amer 127, Est GFR (MDRD) Non-Af 105, BUN/Creatinine Ratio 23.0 H, Glucose 116 H, Calcium 8.8, Total Bilirubin 0.40, AST 30, ALT 42, Alkaline Phosphatase 107, Total Protein 8.0, Albumin 3.9, Globulin 4.1, Albumin/Globulin Ratio 1.0, Lipase 62 L Current Medications Sodium Chloride () 1,000 mls @ 999 mls/hr IV .Q1H1M ONE Stop: 01/18/20 10:46 Last Admin: 01/18/20 09:57 Dose: 999 mls/hr Documented by: Assessment/Plan All Active Problems (Last Reviewed 01/18/20 @ 11:[address] Rick Calderon MD) Tongue pain (Resolved) SBO (small bowel obstruction) (Acute) Segmental and somatic dysfunction of pelvic region (Resolved) Segmental and somatic dysfunction of lumbar region (Resolved) Patient is a 64-year-old lady with history of ovarian cancer status post NAVIN with salpingo-oophorectomy who presents with abdominal pain with associated nausea and vomiting 1. Small bowel obstruction ?Suspected to be secondary to adhesions from patient's previous surgery. Admitted to regular nursing floor managed with bowel rest, antinausea medication and pain meds NG tube to low intermittent suction with consultation placed to general surgery. Repeat imaging studies ordered for a.m. 2. History of ovarian CA ?Patient managed with NAVIN with bilateral salpingo-oophorectomy with subsequent chemo which she completed on 03/05/2014. Has since remained in remission 3. Peripheral neuropathy ?From patient's previous chemo 4. GERD ?Patient placed on PPI 5. DVT prophylaxis ?Lovenox Clinical Impression(s) from Imaging Studies Abdomen/Pelvis CT 01/18/20 08:07 IMPRESSION: Findings suggestive of an early or partial distal small bowel obstruction. A small amount of the free fluid is seen in the pelvis. Stable small right renal cyst. Electronically Signed: Kraig Molina, at 10:11 EDT , Service support , Inpatient E&M: [id number] Init Hosp L3
[2020-01-18 10:38] VITALS: BP 141/65; PULSE 70; RESP 16; TEMP 36.4; O2SAT 100
--- NOTE | 2020-01-18 11:40 | RAD_ITS ---
STUDY: X-RAY - ABDOMEN/PELVIS REASON FOR EXAM: Female, 64 years old. NG PLACEMENT TECHNIQUE: Single AP view of the abdomen / pelvis. COMPARISON: None. FINDINGS: Normal visualized lung bases. The tip of nasogastric tube is in the body of the stomach. RAD/Abdomen Single View (Portable) IMPRESSION: The tip of the nasogastric tube is in the body of the stomach. Electronically Signed: Kraig Molina, at 11:51 EDT , Service support ,
[2020-01-18 12:17] VITALS: BMI 20.6
[2020-01-18 12:21] VITALS: BP 146/57; PULSE 57; RESP 16; TEMP 36.5; O2SAT 100
[2020-01-18] MEDS: Morphine 2 MG/ML Syringe IV (13:57)
[2020-01-18] MEDS: 0.9% Saline Lock 10 ML Syringe IV ×2 (13:58→22:47)
--- NOTE | 2020-01-18 14:20 | CASEMGMT ---
RN TRACE Face to Face with patient for initial transition planning/care coordination assessment. RN CM introduced self and role at [facility]. Patient lying in bed, alert and oriented. Patient willing to participate in assessment and is able to answer all questions appropriately. Care providers, pharmacy, and demographics verified. Patient wishes to discharge home, denies need for home health at this time. Patient states she has no further needs or concerns at this time. CM to follow for discharge planning needs that may arise. PCP: Cyrus Specialists: Brian, oncologist Preferred Pharmacy: [facility] Retail Insurance: MMO Prescription Benefit: yes Living Will/HPOA: none LNOK: Living Arrangements: Patient lives with in a ranch style home with no steps to enter. Patient states she is independent at home. Transportation: self/ DME/HHC: Patient denies DME or previous HHC. Disposition Plan: Patient to discharge home with family support and follow-up plans in place. Sivan JENNINGS, RN, CM
--- NOTE | 2020-01-18 15:56 | PCM.CONS.GEN ---
Problem List (1) SBO (small bowel obstruction) Status: Acute Reason for Consult Date of Consultation: 01/18/20 History of Present Illness: The patient is a 64 year old F 64-year-old lady with past medical history single for ovarian CA status post bilateral salpingo-oophorectomy and chemotherapy currently in remission who presents with abdominal pain. Patient pain started a day prior to coming in. Pain was located in the periumbilical region. 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 She did however experience significant nausea and some vomiting. She had a similar presentation in April was in the 2016. She presented to the emergency department imaging studies consistent with small bowel obstruction. Subsequently admitted to regular nursing for further management. Further questioning patient admitted to chills but no fever. Denied any cough no shortness of breath. Past Medical History Past Medical History (Chronic Problems): Chronic Problems (Last Reviewed 01/18/20 @ 11:[address] Rick Calderon MD) DDD (degenerative disc disease), lumbar (Chronic) Lung nodule, multiple (Chronic) History of ovarian cancer (Chronic) Ovarian cancer (Chronic) Medical History: Medical History (Last Reviewed 01/18/20 @ 11:[address] 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 Rick Calderon MD) History of dilation and curettage Z98.890 History of hysterectomy Z98.890, Z90.710 History of tubal ligation Z98.51 Smoking Status: Never smoker - *Family History Maternal Family History: Family History (Last Reviewed 01/18/20 @ 11:[address] Rick Calderon MD) Sister Cancer Mother Alzheimer disease Review of Systems Constitutional: Denies: Chills, Fever, Weight Change Respiratory: Denies: Cough, Hemoptysis, Shortness of breath at rest, Shortness of breath upon exertion, Wheezing Gastrointestinal: Reports: Abdominal Pain, Dyspepsia, Nausea, Vomiting. Denies: Diarrhea, Hematemesis Genitourinary: Denies: Dysuria, Frequency, Hematuria, Urgency Patient Problems: Active and Suspected Problems (Last Reviewed 01/18/20 @ 11:[address] Rick Calderon MD) SBO (small bowel obstruction) (Acute) - Physical Exam Vitals/I&O's: Vital Signs Temp Pulse Resp BP Pulse Ox 97.7 F L 57 L 16 146/57 H 100 01/18/20 12:21 01/18/20 12:21 01/18/20 12:21 01/18/20 12:21 01/18/20 12:21 Oxygen Delivery Method Room Air Weight: 123 lb 14.397 oz Body Mass Index (BMI) 20.6 Intake and Output for Last 24 Hours 01/16/20 01/17/20 01/18/20 23:59 23:59 23:59 Intake Total Balance General: Alert, Oriented x3 Lungs: Clear to auscultation Cardiovascular: Regular rate, Regular Rhythm, No murmurs Abdomen: Hypoactive Bowel Sounds, Tender - No peritoneal irritation is identified. Extremities: No clubbing, No cyanosis, No edema Laboratory Results 01/18/20 08:38: Urine Color Yellow, Urine Clarity Sl. Cloudy, Urine pH 6.5, Ur Specific [place] 1.015, Urine Protein 30 H, Urine Glucose (UA) Normal, Urine Ketones Negative, Urine Occult Blood 25 H, Urine Nitrite Negative, Urine Bilirubin Negative, Urine Urobilinogen Normal, Ur Leukocyte Esterase Negative, Urine RBC 0-5 SEEN, Urine WBC 0 SEEN, Ur Squamous Epith Cells 0-5 SEEN, Urine Bacteria 0 SEEN, Urine Mucus 0 SEEN 01/18/20 08:45: WBC 9.5, RBC 4.66, Hgb 15.0, Hct 45.7, MCV 98.1, MCH 32.2 H, MCHC 32.8, RDW Std Deviation 44.4 H, RDW Coeff of Jermaine 12.2, Plt Count 209, MPV 10.5, Immature Gran % (Auto) 0.200, Neut % (Auto) 82.9 H, Lymph % (Auto) 13.2 L, [place] % (Auto) 3.3, Eos % (Auto) 0.0, Baso % (Auto) 0.4, Absolute Neuts (auto) 7.8 H, Absolute Lymphs (auto) 1.25, Nucleated RBC % 0 01/18/20 08:45: Sodium 137, Potassium 3.7, Chloride 110 H, Carbon Dioxide 20.0 L, Anion Gap 7, BUN 14, Creatinine 0.61, Estim Creat Clear Calc 81.57, Est GFR (MDRD) Af Amer 127, Est GFR (MDRD) Non-Af 105, BUN/Creatinine Ratio 23.0 H, Glucose 116 H, Calcium 8.8, Total Bilirubin 0.40, AST 30, ALT 42, Alkaline Phosphatase 107, Total Protein 8.0, Albumin 3.9, Globulin 4.1, Albumin/Globulin Ratio 1.0, Lipase 62 L Current Medications Acetaminophen (Tylenol) 650 mg PO Q6H PRN PRN PRN Reason: Pain Score 1-10/Temp > 100.7 F Al Hydroxide/Mg Hydroxide (Mylanta Ii) 30 ml PO Q6H PRN PRN PRN Reason: Gastric Burning Albuterol Sulfate (Ventolin Aerosols) 2.5 mg INHALATION Q2H PRN PRN PRN Reason: Shortness of Breath/Wheezing Enoxaparin Sodium (Lovenox) 40 mg SC DAILY [facility] Potassium Chloride/Dextrose/Sod Cl (Kcl 20meq In D5.45ns 1000ml) 1,000 mls @ 125 mls/hr IV .Q8H ELOISE Stop: 01/20/20 04:59 Last Infusion: 01/18/20 14:05 Dose: 0 mls/hr Documented by: Pantoprazole Sodium 40 mg/ (Sodium Chloride) 110 mls @ 330 mls/hr IV Q24 [facility] Melatonin (Melatonin) 3 mg PO QHS PRN PRN PRN Reason: INSOMNIA Morphine Sulfate () 2 - 4 mg IV Q3H PRN PRN PRN Reason: Pain Score 6-10/10 Morphine Sulfate () 2 - 4 mg IV Q3H PRN PRN PRN Reason: Pain Score 6-10/10 Last Admin: 01/18/20 13:57 Dose: 2 mg Documented by: Ondansetron HCl (Zofran) 4 mg IV Q8H PRN PRN PRN Reason: NAUSEA/VOMITING Oxycodone HCl (Oxyir) 5 mg PO Q4H PRN PRN PRN Reason: Pain Score 4-5/10 Promethazine HCl (Phenergan) 25 mg IM Q6H PRN PRN PRN Reason: Breakthrough nausea/vomiting Senna/Docusate Sodium (Senokot-S, Shana-Colace) 2 tablet PO BID PRN PRN PRN Reason: Constipation Sodium Chloride () 10 - 40 ml IV UD PRN PRN Reason: SALINE FLUSH Last Admin: 01/18/20 13:58 Dose: 10 ml Documented by: Throat Lozenges (Cepacol Sore Throat Lozenge) 1 lozenge MUCOUS MEM Q2H PRN PRN PRN Reason: SORE THROAT Assessment/Plan All Active Problems (Last Reviewed 01/18/20 @ 11:[address] Rick Calderon MD) Tongue pain (Resolved) SBO (small bowel obstruction) (Acute) Segmental and somatic dysfunction of pelvic region (Resolved) Segmental and somatic dysfunction of lumbar region (Resolved) We will continue to follow with you with this patient. Believe conservative measurements will probably be successful given the appearance of the CAT scan. Believe it is okay for her to have ice chips and chewing gum. Office Visits / Consults: [id number] IP Consult L3
[2020-01-18 16:59] VITALS: BP 129/60; PULSE 68; RESP 16; TEMP 36.5; O2SAT 100
--- NOTE | 2020-01-18 19:17 | CT_ITS ---
STUDY: CT ABDOMEN WITHOUT CONTRAST REASON FOR EXAM: Female, 64 years old. Questioning NG PLACEMENT RADIATION DOSAGE (If Supplied By Facility): CTDIvol = ( 6.04 ) mGy, DLP = ( 164.51 ) mGycm TECHNIQUE: Transaxial images were obtained without intravenous contrast, and oral contrast. Sagittal and coronal images were reconstructed. Individualized dose optimization techniques were used for this CT. COMPARISON: CT dated 01/18/2020 at 9:37 AM. FINDINGS: There is a small right pleural effusion. The visualized portions of the heart are within normal limits. Normal liver. There is contrast within the gallbladder. Normal spleen. Normal pancreas. Normal bilateral adrenal glands. Normal right kidney. Normal left kidney. There is an enteric tube in place terminating within the mid gastric fundus. Normal visualized small intestine. Normal colon. There is non-visualization of the appendix. There is diffuse atherosclerotic calcification of the abdominal aorta with elongation and tortuosity, but without a demonstrated aneurysm. Normal inferior vena cava. There are surgical clips adjacent to the common iliac vessels. Normal abdominal wall. There are diffuse degenerative changes of the visualized lumbar spine. CT/Abdomen without IV Contrast IMPRESSION: Enteric tube terminating within the mid gastric fundus. Small right pleural effusion Atherosclerosis. Electronically Signed: Kailee Verduzco MD at 20:08 EDT Tel , Service support ,
[2020-01-18] MEDS: BENZOCAINE/MENTHOL 1 LOZENGE MUCOUS MEM (21:00)
[2020-01-18 21:06] VITALS: BP 125/79; PULSE 63; RESP 14; TEMP 36.6; O2SAT 100
[2020-01-19 03:10] VITALS: BP 102/49; PULSE 60; RESP 14; TEMP 37; O2SAT 99
[2020-01-19 07:13] LABS: Absolute Lymphocyte Count 1.68 X10^3/uL (0.83-4.51); Absolute Neutrophil Count 5.7 X10^3/uL (2.0-7.7); Basophil# 0.02 X10^3/uL; Basophil% 0.2 % (0-1); Eosinophil# 0.03 X10^3/uL; Eosinophils% 0.4 % (0-5); Hematocrit 39.9 % (37-47); Hemoglobin 13.1 g/dL (12.0-15.0); Lymphocyte # 1.68 X10^3/ul (4.0); Lymphocyte % 20.5 % (19-41); Mean Corp Hgb Conc 32.8 g/dL (32-36); Mean Corpuscular Volume 97.6 fL (81-99); Mean Platelet Vol. 10.7 fl (6.2-12.0); Monocyte# 0.73 X10^3/uL; Monocyte% 8.9 % (0-10); NRBC Flagged by Analyzer 0 % (0-5); Neutrophil # 5.71 X10^3/uL (2.7-7.7); Neutrophil % 69.8 % (47-70); Platelet Count 184 K/mm3 (150-450); RBC Distribution Width CV 12.4 % (11.6-14.6); RBC Distribution Width SD 44.8 fl (35.1-43.9); Red Blood Count 4.09 M/mm3 (4.2-5.4); White Blood Count 8.2 K/mm3 (4.4-11.0)
--- NOTE | 2020-01-19 07:27 | PN_ITS ---
Patient Problems: Active and Suspected Problems (Last Reviewed 01/18/20 @ 11:[address] Rick Calderon MD) SBO (small bowel obstruction) (Acute) Reason for Visit: Small bowel obstruction Subjective: Patient is a 64-year-old lady with history of ovarian cancer status post NAVIN with salpingo-oophorectomy who presents with abdominal pain with associated nausea and vomiting. An assessment of small bowel obstruction made admitted to regular nursing floor where patient is currently being managed. Objective: GENERAL: cooperative HEENT: Atraumatic; EYES; Anicteric, Normal Conjunctiva NECK; supple, normal thyroid, RESPIRATORY: Diminished to auscultation CARDIOVASCULAR: Regular S1 S2, GI: Periumbilical tenderness : No Renal angle tenderness; EXTREMITIES: No edema, no clubbing, MUSCULOSKELETAL: no muscle waisting NEURO: Awake; no lateralizing signs. SKIN: No Rash PSYCH; Flat affect Vitals/I&O's: Vital Signs Temp Pulse Resp BP Pulse Ox 98.6 F 60 14 102/49 L 99 01/19/20 03:10 01/19/20 03:10 01/19/20 03:10 01/19/20 03:10 01/19/20 03:10 Oxygen Delivery Method Room Air Weight: 56.2 kg Body Mass Index (BMI) 20.6 Intake and Output for Last 24 Hours 01/17/20 01/18/20 01/19/20 23:59 23:59 23:59 Intake Total 3270.00 / 3270.00 1060 / 1060 Output Total 50 / 125 800 / 800 Balance 3220.00 / 3145.00 260 / 260 Laboratory Results 01/18/20 08:38: Urine Color Yellow, Urine Clarity Sl. Cloudy, Urine pH 6.5, Ur Specific [place] 1.015, Urine Protein 30 H, Urine Glucose (UA) Normal, Urine Ketones Negative, Urine Occult Blood 25 H, Urine Nitrite Negative, Urine Bilirubin Negative, Urine Urobilinogen Normal, Ur Leukocyte Esterase Negative, Urine RBC 0-5 SEEN, Urine WBC 0 SEEN, Ur Squamous Epith Cells 0-5 SEEN, Urine Bacteria 0 SEEN, Urine Mucus 0 SEEN 01/18/20 08:45: WBC 9.5, RBC 4.66, Hgb 15.0, Hct 45.7, MCV 98.1, MCH 32.2 H, MCHC 32.8, RDW Std Deviation 44.4 H, RDW Coeff of Jermaine 12.2, Plt Count 209, MPV 10.5, Immature Gran % (Auto) 0.200, Neut % (Auto) 82.9 H, Lymph % (Auto) 13.2 L, [place] % (Auto) 3.3, Eos % (Auto) 0.0, Baso % (Auto) 0.4, Absolute Neuts (auto) 7.8 H, Absolute Lymphs (auto) 1.25, Nucleated RBC % 0 01/18/20 08:45: Sodium 137, Potassium 3.7, Chloride 110 H, Carbon Dioxide 20.0 L , Anion Gap 7, BUN 14, Creatinine 0.61, Estim Creat Clear Calc 81.57, Est GFR (MDRD) Af Amer 127, Est GFR (MDRD) Non-Af 105, BUN/Creatinine Ratio 23.0 H, Glucose 116 H, Calcium 8.8, Total Bilirubin 0.40, AST 30, ALT 42, Alkaline Phosphatase 107, Total Protein 8.0, Albumin 3.9, Globulin 4.1, Albumin/Globulin Ratio 1.0, Lipase 62 L 01/19/20 06:10: WBC 8.2, RBC 4.09 L, Hgb 13.1, Hct 39.9, MCV 97.6, MCH 32.0, MCHC 32.8, RDW Std Deviation 44.8 H, RDW Coeff of Jermaine 12.4, Plt Count 184, MPV 10.7, Immature Gran % (Auto) 0.200, Neut % (Auto) 69.8, Lymph % (Auto) 20.5, [place] % (Auto) 8.9, Eos % (Auto) 0.4, Baso % (Auto) 0.2, Absolute Neuts (auto) 5.7, Absolute Lymphs (auto) 1.68, Nucleated RBC % 0 01/19/20 06:10: Sodium Pending, Potassium Pending, Chloride Pending, Carbon Di oxide Pending, Anion Gap Pending, BUN Pending, Creatinine Pending, Est GFR (MDRD) Af Amer Pending, Est GFR (MDRD) Non-Af Pending, BUN/Creatinine Ratio Pending, Glucose Pending, Calcium Pending, Magnesium Pending Current Medications Acetaminophen (Tylenol) 650 mg PO Q6H PRN PRN PRN Reason: Pain Score 1-10/Temp > 100.7 F Al Hydroxide/Mg Hydroxide (Mylanta Ii) 30 ml PO Q6H PRN PRN PRN Reason: Gastric Burning Albuterol Sulfate (Ventolin Aerosols) 2.5 mg INHALATION Q2H PRN PRN PRN Reason: Shortness of Breath/Wheezing Enoxaparin Sodium (Lovenox) 40 mg SC DAILY COUNTS INCLUDE 234 BEDS AT THE [facility] Potassium Chloride/Dextrose/Sod Cl (Kcl 20meq In D5.45ns 1000ml) 1,000 mls @ 125 mls/hr IV .Q8H COUNTS INCLUDE 234 BEDS AT THE [facility] Stop: 01/20/20 04:59 Last Admin: 01/19/20 06:49 Dose: 125 mls/hr Documented by: Pantoprazole Sodium 40 mg/ (Sodium Chloride) 110 mls @ 330 mls/hr IV Q24 COUNTS INCLUDE 234 BEDS AT THE [facility] Melatonin (Melatonin) 3 mg PO QHS PRN PRN PRN Reason: INSOMNIA Morphine Sulfate () 2 - 4 mg IV Q3H PRN PRN PRN Reason: Pain Score 6-10/10 Morphine Sulfate () 2 - 4 mg IV Q3H PRN PRN PRN Reason: Pain Score 6-10/10 Last Admin: 01/18/20 13:57 Dose: 2 mg Documented by: Ondansetron HCl (Zofran) 4 mg IV Q8H PRN PRN PRN Reason: NAUSEA/VOMITING Oxycodone HCl (Oxyir) 5 mg PO Q4H PRN PRN PRN Reason: Pain Score 4-5/10 Promethazine HCl (Phenergan) 25 mg IM Q6H PRN PRN PRN Reason: Breakthrough nausea/vomiting Senna/Docusate Sodium (Senokot-S, Shana-Colace) 2 tablet PO BID PRN PRN PRN Reason: Constipation Sodium Chloride () 10 - 40 ml IV UD PRN PRN Reason: SALINE FLUSH Last Admin: 01/18/20 22:47 Dose: 20 ml Documented by: Throat Lozenges (Cepacol Sore Throat Lozenge) 1 lozenge MUCOUS MEM Q2H PRN PRN PRN Reason: SORE THROAT Last Admin: 01/18/20 21:00 Dose: 1 lozenge Documented by: Medical Necessity - Tobacco Use Smoking Status: Never smoker Assessment/Plan All Active Problems (Last Reviewed 01/18/20 @ 11:[address] Rick Calderon MD) Tongue pain (Resolved) SBO (small bowel obstruction) (Acute) Segmental and somatic dysfunction of pelvic region (Resolved) Segmental and somatic dysfunction of lumbar region (Resolved) Patient is a 64-year-old lady with history of ovarian cancer status post NAVIN with salpingo-oophorectomy who presents with abdominal pain with associated nausea and vomiting 1. Small bowel obstruction ?Suspected to be secondary to adhesions from patient's previous surgery. Admitted to regular nursing floor managed with bowel rest, antinausea medication and pain meds NG tube to low intermittent suction with consultation placed to general surgery. Repeat imaging studies ordered for a.m. -01/19/2020: Patient admitted to passing gas. Repeat KUB this a.m. demonstrated normal gas pattern. Plan is to clamp the NG tube and later remove patient started on clear liquids to be advanced as tolerated. Case was discussed with Dr. Luther with general surgery. 2. History of ovarian CA ?Patient managed with NAVIN with bilateral salpingo-oophorectomy with subsequent chemo which she completed on 03/05/2014. Has since remained in remission 3. Peripheral neuropathy ?From patient's previous chemo 4. GERD ?Patient placed on PPI 5. DVT prophylaxis ?Lovenox Clinical Impression(s) from Imaging Studies Abdomen/Pelvis CT 01/18/20 08:07 IMPRESSION: Findings suggestive of an early or partial distal small bowel obstruction. A small amount of the free fluid is seen in the pelvis. Stable small right renal cyst. Electronically Signed: Kraig Molina, at 10:11 EDT , Service support , KUB X-Ray 01/18/20 11:40 IMPRESSION: The tip of the nasogastric tube is in the body of the stomach. Electronically Signed: Kraig Molina, at 11:51 EDT , Service support , Abdomen CT 01/18/20 19:17 IMPRESSION: Enteric tube terminating within the mid gastric fundus. Small right pleural effusion Atherosclerosis. Electronically Signed: Kailee Verduzco MD at 20:08 EDT Tel , Service support , Abdomen X-Ray 01/19/20 08:16 IMPRESSION: Nonspecific bowel gas pattern. Electronically Signed: Janak Henry MD at 8:59 EDT Tel , Service support , Inpatient E&M: [id number] Subs Hosp L3
[2020-01-19 08:13] LABS: Anion Gap 5 (5-15); BUN 7 mg/dL (7-18); Chloride 110 mmol/L (98-107); Creatinine, Serum 0.54 mg/dL (0.55-1.02); EST Glomerular Filtration Rate 121 mL/min (>60); Est Glom Filt Rate - Afr Amer 146 mL/min (>60); Estimated Creatinine Clearance 92.15 ml/min; Glucose 108 mg/dL (74-106); Magnesium 2.2 mg/dL (1.6-2.6); Potassium 3.2 mmol/L (3.5-5.1); Sodium Level 141 mmol/L (136-145)
--- NOTE | 2020-01-19 08:16 | RAD_ITS ---
STUDY: X-RAY - ABDOMEN/PELVIS REASON FOR EXAM: Female, 64 years old. small bowel obstruction follow up TECHNIQUE: AP supine and upright views of the abdomen and pelvis. COMPARISON: 01/18/2020 FINDINGS: Nasogastric tube with the tip in the left upper quadrant likely in the body the stomach. Gas in multiple loops of small bowel in a nonspecific bowel gas pattern. There is no demonstrated free abdominal air. The visualized liver, spleen and kidneys are grossly normal in size and morphology. Normal soft tissue structures. Normal visualized osseous structures. RAD/Abd Inc Decub and/or Erect IMPRESSION: Nonspecific bowel gas pattern. Electronically Signed: Janak Henry MD at 8:59 EDT Tel , Service support ,
[2020-01-19 08:30] VITALS: BP 110/58; PULSE 58; RESP 14; TEMP 36.6; O2SAT 100
--- NOTE | 2020-01-19 08:52 | PN.SURG_ITS ---
Patient Problems: Active and Suspected Problems (Last Reviewed 01/18/20 @ 11:[address] Rick Calderon MD) SBO (small bowel obstruction) (Acute) Subjective: Patient is no longer having abdominal pain. She has had a little bit of flatus. She went down for an abdominal x-ray which showed significant amount of air is now in the colon but she still has a few small air-fluid levels. Objective: Diminished soft and nontender less distended. - Physical Exam Vitals/I&O's: Vital Signs Temp Pulse Resp BP Pulse Ox 97.8 F 58 L 14 110/58 L 100 01/19/20 08:30 01/19/20 08:30 01/19/20 08:30 01/19/20 08:30 01/19/20 08:30 Oxygen Delivery Method Room Air Weight: 123 lb 14.397 oz Body Mass Index (BMI) 20.6 Intake and Output for Last 24 Hours 01/17/20 01/18/20 01/19/20 23:59 23:59 23:59 Intake Total 3270.00 / 3270.00 1276.67 / 1276.67 Output Total 50 / 125 800 / 800 Balance 3220.00 / 3145.00 476.67 / 476.67 Laboratory Results 01/18/20 08:38: Urine Color Yellow, Urine Clarity Sl. Cloudy, Urine pH 6.5, Ur Specific [place] 1.015, Urine Protein 30 H, Urine Glucose (UA) Normal, Urine Ketones Negative, Urine Occult Blood 25 H, Urine Nitrite Negative, Urine Bilirubin Negative, Urine Urobilinogen Normal, Ur Leukocyte Esterase Negative, Urine RBC 0-5 SEEN, Urine WBC 0 SEEN, Ur Squamous Epith Cells 0-5 SEEN, Urine Bacteria 0 SEEN, Urine Mucus 0 SEEN 01/18/20 08:45: WBC 9.5, RBC 4.66, Hgb 15.0, Hct 45.7, MCV 98.1, MCH 32.2 H, MCHC 32.8, RDW Std Deviation 44.4 H, RDW Coeff of Jermaine 12.2, Plt Count 209, MPV 10.5, Immature Gran % (Auto) 0.200, Neut % (Auto) 82.9 H, Lymph % (Auto) 13.2 L, [place] % (Auto) 3.3, Eos % (Auto) 0.0, Baso % (Auto) 0.4, Absolute Neuts (auto) 7.8 H, Absolute Lymphs (auto) 1.25, Nucleated RBC % 0 01/18/20 08:45: Sodium 137, Potassium 3.7, Chloride 110 H, Carbon Dioxide 20.0 L , Anion Gap 7, BUN 14, Creatinine 0.61, Estim Creat Clear Calc 81.57, Est GFR (MDRD) Af Amer 127, Est GFR (MDRD) Non-Af 105, BUN/Creatinine Ratio 23.0 H, Glucose 116 H, Calcium 8.8, Total Bilirubin 0.40, AST 30, ALT 42, Alkaline Phosphatase 107, Total Protein 8.0, Albumin 3.9, Globulin 4.1, Albumin/Globulin Ratio 1.0, Lipase 62 L 01/19/20 06:10: WBC 8.2, RBC 4.09 L, Hgb 13.1, Hct 39.9, MCV 97.6, MCH 32.0, MCHC 32.8, RDW Std Deviation 44.8 H, RDW Coeff of Jermaine 12.4, Plt Count 184, MPV 10.7, Immature Gran % (Auto) 0.200, Neut % (Auto) 69.8, Lymph % (Auto) 20.5, [place] % (Auto) 8.9, Eos % (Auto) 0.4, Baso % (Auto) 0.2, Absolute Neuts (auto) 5.7, Absolute Lymphs (auto) 1.68, Nucleated RBC % 0 01/19/20 06:10: Sodium 141, Potassium 3.2 L, Chloride 110 H, Carbon Dioxide 26.0, Anion Gap 5, BUN 7, Creatinine 0.54 L, Estim Creat Clear Calc 92.15, Est GFR (MDRD) Af Amer 146, Est GFR (MDRD) Non-Af 121, BUN/Creatinine Ratio 13.0, Glucose 108 H, Calcium 8.0 L, Magnesium 2.2 Current Medications Acetaminophen (Tylenol) 650 mg PO Q6H PRN PRN PRN Reason: Pain Score 1-10/Temp > 100.7 F Al Hydroxide/Mg Hydroxide (Mylanta Ii) 30 ml PO Q6H PRN PRN PRN Reason: Gastric Burning Albuterol Sulfate (Ventolin Aerosols) 2.5 mg INHALATION Q2H PRN PRN PRN Reason: Shortness of Breath/Wheezing Enoxaparin Sodium (Lovenox) 40 mg SC DAILY [facility] Potassium Chloride/Dextrose/Sod Cl (Kcl 20meq In D5.45ns 1000ml) 1,000 mls @ 125 mls/hr IV .Q8H [facility] Stop: 01/20/20 04:59 Last Infusion: 01/19/20 08:33 Dose: 0 mls/hr Documented by: Pantoprazole Sodium 40 mg/ (Sodium Chloride) 110 mls @ 330 mls/hr IV Q24 [facility] Melatonin (Melatonin) 3 mg PO QHS PRN PRN PRN Reason: INSOMNIA Morphine Sulfate () 2 - 4 mg IV Q3H PRN PRN PRN Reason: Pain Score 6-10/10 Morphine Sulfate () 2 - 4 mg IV Q3H PRN PRN PRN Reason: Pain Score 6-10/10 Last Admin: 01/18/20 13:57 Dose: 2 mg Documented by: Ondansetron HCl (Zofran) 4 mg IV Q8H PRN PRN PRN Reason: NAUSEA/VOMITING Oxycodone HCl (Oxyir) 5 mg PO Q4H PRN PRN PRN Reason: Pain Score 4-5/10 Promethazine HCl (Phenergan) 25 mg IM Q6H PRN PRN PRN Reason: Breakthrough nausea/vomiting Senna/Docusate Sodium (Senokot-S, Shana-Colace) 2 tablet PO BID PRN PRN PRN Reason: Constipation Sodium Chloride () 10 - 40 ml IV UD PRN PRN Reason: SALINE FLUSH Last Admin: 01/18/20 22:47 Dose: 20 ml Documented by: Throat Lozenges (Cepacol Sore Throat Lozenge) 1 lozenge MUCOUS MEM Q2H PRN PRN PRN Reason: SORE THROAT Last Admin: 01/18/20 21:00 Dose: 1 lozenge Documented by: Medical Necessity - Tobacco Use Smoking Status: Never smoker Assessment/Plan All Active Problems (Last Reviewed 01/18/20 @ 11:[address] Rick Calderon MD) Tongue pain (Resolved) SBO (small bowel obstruction) (Acute) Segmental and somatic dysfunction of pelvic region (Resolved) Segmental and somatic dysfunction of lumbar region (Resolved) Slowly resolving partial small bowel obstruction. Would probably leave the NG tube in until she has better flatus but I will leave this up to her. Inpatient E&M: [id number] Subs Hosp L2
[2020-01-19] MEDS: Enoxaparin 40 MG/0.4 ML Syringe SC (09:06)
[2020-01-19 15:00] VITALS: BP 118/59; PULSE 59; RESP 16; TEMP 37; O2SAT 100
--- NOTE | 2020-01-19 16:01 | DCINST_ITS ---
- Discharge Diagnoses Current Active Problems: Current Active and Chronic Problems (Last Reviewed 01/18/20 @ 11:[address] Rick Calderon MD) SBO (small bowel obstruction) (Acute) You will use the following diet at home:: Clear liquid Your food should be the consistency of: Mechanical soft (ground) Discharge Activity: Return to Normal Activity Allergies/Adverse Reactions: Allergies No Known Allergies Allergy (Verified 01/18/20 07:46) Medications to take at Discharge NK 01/18/20 Primary Care Physician: Selene Bridges DO [Primary Care Provider] - Please follow up with your Primary Care Physician in: in 1 week Test Results: Test results from this visit will be discussed in further detail at your follow- up appointment, if applicable. Proposed Discharge Date: 01/19/20
--- NOTE | 2020-01-19 16:09 | PCM.DC.SUM ---
Discharge Date and Diagnosis - Problem List Patient Problems: Active and Suspected Problems (Last Reviewed 01/18/20 @ 11:[address] Rick Calderon MD) SBO (small bowel obstruction) (Acute) Date of Admission: 01/18/20 Date of Discharge: 01/19/20 - Primary Discharge Diagnosis Acute Problems: Active Problems (Last Reviewed 01/18/20 @ 11:[address] Rick Calderon MD) SBO (small bowel obstruction) (Acute) - Secondary Discharge Diagnosis Chronic Problems: Chronic Problems (Last Reviewed 01/18/20 @ 11:[address] Rick Calderon MD) DDD (degenerative disc disease), lumbar (Chronic) Lung nodule, multiple (Chronic) History of ovarian cancer (Chronic) Ovarian cancer (Chronic) Hospital Course and Treatment Imaging Results: 01/19/20 08:16 Abd Inc Decub and/or Erect [RAD] Urgent Summary of Care Provided: Patient is a 64-year-old lady with history of ovarian cancer status post NAVIN with salpingo-oophorectomy who presents with abdominal pain with associated nausea and vomiting 1. Small bowel obstruction ?Suspected to be secondary to adhesions from patient's previous surgery. Admitted to regular nursing floor managed with bowel rest, antinausea medication and pain meds NG tube to low intermittent suction with consultation placed to general surgery. Repeat imaging studies ordered for a.m. -01/19/2020: Patient admitted to passing gas. Repeat KUB this a.m. demonstrated normal gas pattern. Plan is to clamp the NG tube and later remove patient started on clear liquids to be advanced as tolerated. Case was discussed with Dr. Luther with general surgery. -?01/19/2020: Patient was expected to stay for at least 2 midnight however she felt her condition had improved and subsequently requested to be discharged home. Patient was instructed to stay on clear liquids and to advance as tolerated. She was also instructed to return to the ED if she developed any pain or her nausea and vomiting recurred. 2. History of ovarian CA ?Patient managed with NAVIN with bilateral salpingo-oophorectomy with subsequent chemo which she completed on 03/05/2014. Has since remained in remission 3. Peripheral neuropathy ?From patient's previous chemo 4. GERD ?Patient placed on PPI 5. DVT prophylaxis ?Lovenox Patient Problems: Active and Suspected Problems (Last Reviewed 01/18/20 @ 11:[address] Rick Calderon MD) SBO (small bowel obstruction) (Acute) - Physical Exam Vitals/I&O's: Vital Signs Temp Pulse Resp BP Pulse Ox 98.6 F 59 L 16 118/59 L 100 01/19/20 15:00 01/19/20 15:00 01/19/20 15:00 01/19/20 15:00 01/19/20 15:00 Oxygen Delivery Method Room Air Weight: 56.2 kg Body Mass Index (BMI) 20.6 Intake and Output for Last 24 Hours 01/17/20 01/18/20 01/19/20 23:59 23:59 23:59 Intake Total 3270.00 / 3270.00 2210.84 / 2210.84 Output Total 50 / 125 1500 / 1500 Balance 3220.00 / 3145.00 710.84 / 710.84 General: Alert HEENT: Atraumatic Neck: Supple Neurological: Neuro grossly intact Psych/Mental Status: Normal Affect Laboratory Results 01/19/20 06:10: WBC 8.2, RBC 4.09 L, Hgb 13.1, Hct 39.9, MCV 97.6, MCH 32.0, MCHC 32.8, RDW Std Deviation 44.8 H, RDW Coeff of Jermaine 12.4, Plt Count 184, MPV 10.7, Immature Gran % (Auto) 0.200, Neut % (Auto) 69.8, Lymph % (Auto) 20.5, [place] % (Auto) 8.9, Eos % (Auto) 0.4, Baso % (Auto) 0.2, Absolute Neuts (auto) 5.7, Absolute Lymphs (auto) 1.68, Nucleated RBC % 0 01/19/20 06:10: Sodium 141, Potassium 3.2 L, Chloride 110 H, Carbon Dioxide 26.0, Anion Gap 5, BUN 7, Creatinine 0.54 L, Estim Creat Clear Calc 92.15, Est GFR (MDRD) Af Amer 146, Est GFR (MDRD) Non-Af 121, BUN/Creatinine Ratio 13.0, Glucose 108 H, Calcium 8.0 L, Magnesium 2.2 Current Medications Acetaminophen (Tylenol) 650 mg PO Q6H PRN PRN PRN Reason: Pain Score 1-10/Temp > 100.7 F Al Hydroxide/Mg Hydroxide (Mylanta Ii) 30 ml PO Q6H PRN PRN PRN Reason: Gastric Burning Albuterol Sulfate (Ventolin Aerosols) 2.5 mg INHALATION Q2H PRN PRN PRN Reason: Shortness of Breath/Wheezing Enoxaparin Sodium (Lovenox) 40 mg SC DAILY [facility] Last Admin: 01/19/20 09:06 Dose: 40 mg Documented by: Potassium Chloride/Dextrose/Sod Cl (Kcl 20meq In D5.45ns 1000ml) 1,000 mls @ 125 mls/hr IV .Q8H [facility] Stop: 01/20/20 07:44 Last Admin: 01/19/20 15:06 Dose: 125 mls/hr Documented by: Pantoprazole Sodium 40 mg/ (Sodium Chloride) 110 mls @ 330 mls/hr IV Q24 [facility] Last Infusion: 01/19/20 09:28 Dose: Infused Documented by: Melatonin (Melatonin) 3 mg PO QHS PRN PRN PRN Reason: INSOMNIA Morphine Sulfate () 2 - 4 mg IV Q3H PRN PRN PRN Reason: Pain Score 6-10/10 Morphine Sulfate () 2 - 4 mg IV Q3H PRN PRN PRN Reason: Pain Score 6-10/10 Last Admin: 01/18/20 13:57 Dose: 2 mg Documented by: Ondansetron HCl (Zofran) 4 mg IV Q8H PRN PRN PRN Reason: NAUSEA/VOMITING Oxycodone HCl (Oxyir) 5 mg PO Q4H PRN PRN PRN Reason: Pain Score 4-5/10 Promethazine HCl (Phenergan) 25 mg IM Q6H PRN PRN PRN Reason: Breakthrough nausea/vomiting Senna/Docusate Sodium (Senokot-S, Shana-Colace) 2 tablet PO BID PRN PRN PRN Reason: Constipation Sodium Chloride () 10 - 40 ml IV UD PRN PRN Reason: SALINE FLUSH Last Admin: 01/18/20 22:47 Dose: 20 ml Documented by: Throat Lozenges (Cepacol Sore Throat Lozenge) 1 lozenge MUCOUS MEM Q2H PRN PRN PRN Reason: SORE THROAT Last Admin: 01/18/20 21:00 Dose: 1 lozenge Documented by: Discharge Diet: Soft diet Discharge Activity: Return to Normal Activity Home Medications: Medications to take at Discharge NK 01/18/20 Primary Care Physician: Selene Bridges DO [Primary Care Provider] - Please follow up with your Primary Care Physician in: in 1 week Disposition: Home Minutes spent on discharge:: 45 Patient Condition:: Stable Medical Necessity - Tobacco Use Smoking Status: Never smoker Meaningful Use Info Meaningful Use Diagnoses (Choose all that apply): None applicable Inpatient E&M: [id number] Disch Hosp
[2020-01-19 20:00] VITALS: BP 116/51; PULSE 65; RESP 16; TEMP 37.1; O2SAT 97
--- NOTE | 2020-01-19 21:09 | NURSING ---
Per patient she ambulated in her room after being disconnected from NG tube, this RN reconnected NG tube, no other needs voiced.
[2020-01-20 03:00] VITALS: BP 134/62; PULSE 66; RESP 18; TEMP 37.2; O2SAT 97
[2020-01-20 06:17] LABS: Absolute Lymphocyte Count 1.33 X10^3/uL (0.83-4.51); Absolute Neutrophil Count 4.5 X10^3/uL (2.0-7.7); Basophil# 0.03 X10^3/uL; Basophil% 0.5 % (0-1); Eosinophil# 0.04 X10^3/uL; Eosinophils% 0.6 % (0-5); Hematocrit 39.8 % (37-47); Hemoglobin 12.8 g/dL (12.0-15.0); Lymphocyte # 1.33 X10^3/ul (4.0); Lymphocyte % 20.2 % (19-41); Mean Corp Hgb Conc 32.2 g/dL (32-36); Mean Corpuscular Hgb 31.4 pg (27.0-32.0); Mean Corpuscular Volume 97.8 fL (81-99); Mean Platelet Vol. 10.2 fl (6.2-12.0); Monocyte# 0.69 X10^3/uL; Monocyte% 10.5 % (0-10); NRBC Flagged by Analyzer 0 % (0-5); Neutrophil # 4.48 X10^3/uL (2.7-7.7); Neutrophil % 67.9 % (47-70); Platelet Count 192 K/mm3 (150-450); RBC Distribution Width CV 12.5 % (11.6-14.6); RBC Distribution Width SD 45.2 fl (35.1-43.9); Red Blood Count 4.07 M/mm3 (4.2-5.4); White Blood Count 6.6 K/mm3 (4.4-11.0)
[2020-01-20 06:42] LABS: Anion Gap 3 (5-15); BUN 5 mg/dL (7-18); BUN/Creat Ratio 11.2 RATIO (10-20); Calcium,Total 8.2 mg/dL (8.5-10.1); Chloride 112 mmol/L (98-107); Creatinine, Serum 0.45 mg/dL (0.55-1.02); EST Glomerular Filtration Rate 149 mL/min (>60); Est Glom Filt Rate - Afr Amer 181 mL/min (>60); Estimated Creatinine Clearance 110.58 ml/min; Glucose 104 mg/dL (74-106); Potassium 3.7 mmol/L (3.5-5.1); Sodium Level 141 mmol/L (136-145)
[2020-01-20 07:53] VITALS: BP 139/56; PULSE 68; RESP 18; TEMP 36.8; O2SAT 95
--- NOTE | 2020-01-20 08:51 | PCM.PN.HOSP ---
Patient Problems: Active and Suspected Problems (Last Reviewed 01/18/20 @ 11:[address] Rick Calderon MD) SBO (small bowel obstruction) (Acute) Reason for Visit: Small bowel obstruction Subjective: Attempted to discharge patient today prior however symptoms recurred resulting in cancellation of patient discharge. NG tube was inserted back placed to low intermittent suction. Patient seen this a.m. admitted to passing flatus. Plan is to remove NG and patient started on clear liquids to be advanced as tolerated. Also did encourage frequent ambulation Objective: GENERAL: cooperative HEENT: Atraumatic; EYES; Anicteric, Normal Conjunctiva NECK; supple, normal thyroid, RESPIRATORY: Diminished to auscultation CARDIOVASCULAR: Regular S1 S2, GI: Periumbilical tenderness : No Renal angle tenderness; EXTREMITIES: No edema, no clubbing, MUSCULOSKELETAL: no muscle waisting NEURO: Awake; no lateralizing signs. SKIN: No Rash PSYCH; Flat affect Vitals/I&O's: Vital Signs Temp Pulse Resp BP Pulse Ox 98.2 F 68 18 139/56 H 95 01/20/20 07:53 01/20/20 07:53 01/20/20 07:53 01/20/20 07:53 01/20/20 07:53 Oxygen Delivery Method Room Air Weight: 56.2 kg Body Mass Index (BMI) 20.6 Intake and Output for Last 24 Hours 01/18/20 01/19/20 01/20/20 23:59 23:59 23:59 Intake Total 3270.00 / 3270.00 3524.17 / 3524.17 1049.58 / 1049.58 Output Total 50 / 125 2750 / 2750 1650 / 1650 Balance 3220.00 / 3145.00 774.17 / 774.17 -600.42 / -600.42 Laboratory Results 01/20/20 05:40: WBC 6.6, RBC 4.07 L, Hgb 12.8, Hct 39.8, MCV 97.8, MCH 31.4, MCHC 32.2, RDW Std Deviation 45.2 H, RDW Coeff of Jermaine 12.5, Plt Count 192, MPV 10.2, Immature Gran % (Auto) 0.300, Neut % (Auto) 67.9, Lymph % (Auto) 20.2, Hinds % (Auto) 10.5 H, Eos % (Auto) 0.6, Baso % (Auto) 0.5, Absolute Neuts (auto) 4.5, Absolute Lymphs (auto) 1.33, Nucleated RBC % 0 01/20/20 05:40: Sodium 141, Potassium 3.7, Chloride 112 H, Carbon Dioxide 26.0, Anion Gap 3 L, BUN 5 L, Creatinine 0.45 L, Estim Creat Clear Calc 110.58, Est GFR (MDRD) Af Amer 181, Est GFR (MDRD) Non-Af 149, BUN/Creatinine Ratio 11.2, Glucose 104, Calcium 8.2 L Current Medications Acetaminophen (Tylenol) 650 mg PO Q6H PRN PRN PRN Reason: Pain Score 1-10/Temp > 100.7 F Al Hydroxide/Mg Hydroxide (Mylanta Ii) 30 ml PO Q6H PRN PRN PRN Reason: Gastric Burning Albuterol Sulfate (Ventolin Aerosols) 2.5 mg INHALATION Q2H PRN PRN PRN Reason: Shortness of Breath/Wheezing Enoxaparin Sodium (Lovenox) 40 mg SC DAILY [facility] Last Admin: 01/19/20 09:06 Dose: 40 mg Documented by: Pantoprazole Sodium 40 mg/ (Sodium Chloride) 110 mls @ 330 mls/hr IV Q24 [facility] Last Infusion: 01/19/20 09:28 Dose: Infused Documented by: Melatonin (Melatonin) 3 mg PO QHS PRN PRN PRN Reason: INSOMNIA Morphine Sulfate () 2 - 4 mg IV Q3H PRN PRN PRN Reason: Pain Score 6-10/10 Morphine Sulfate () 2 - 4 mg IV Q3H PRN PRN PRN Reason: Pain Score 6-10/10 Last Admin: 01/18/20 13:57 Dose: 2 mg Documented by: Ondansetron HCl (Zofran) 4 mg IV Q8H PRN PRN PRN Reason: NAUSEA/VOMITING Oxycodone HCl (Oxyir) 5 mg PO Q4H PRN PRN PRN Reason: Pain Score 4-5/10 Promethazine HCl (Phenergan) 25 mg IM Q6H PRN PRN PRN Reason: Breakthrough nausea/vomiting Senna/Docusate Sodium (Senokot-S, Shana-Colace) 2 tablet PO BID PRN PRN PRN Reason: Constipation Sodium Chloride () 10 - 40 ml IV UD PRN PRN Reason: SALINE FLUSH Last Admin: 01/18/20 22:47 Dose: 20 ml Documented by: Throat Lozenges (Cepacol Sore Throat Lozenge) 1 lozenge MUCOUS MEM Q2H PRN PRN PRN Reason: SORE THROAT Last Admin: 01/18/20 21:00 Dose: 1 lozenge Documented by: STROKE Vital Signs/Narrative: Vital Signs Temp Pulse Resp BP Pulse Ox 01/20/20 07:53 98.2 F 68 18 139/56 H 95 Medical Necessity - Tobacco Use Smoking Status: Never smoker Assessment/Plan All Active Problems (Last Reviewed 01/18/20 @ 11:[address] Rick Calderon MD) Tongue pain (Resolved) SBO (small bowel obstruction) (Acute) Segmental and somatic dysfunction of pelvic region (Resolved) Segmental and somatic dysfunction of lumbar region (Resolved) Patient is a 64-year-old lady with history of ovarian cancer status post NAVIN with salpingo-oophorectomy who presents with abdominal pain with associated nausea and vomiting 1. Small bowel obstruction ?Suspected to be secondary to adhesions from patient's previous surgery. Admitted to regular nursing floor managed with bowel rest, antinausea medication and pain meds NG tube to low intermittent suction with consultation placed to general surgery. Repeat imaging studies ordered for a.m. -01/19/2020: Patient admitted to passing gas. Repeat KUB this a.m. demonstrated normal gas pattern. Plan is to clamp the NG tube and later remove patient started on clear liquids to be advanced as tolerated. Case was discussed with Dr. Luther with general surgery. ?01/20/2020;Attempted to discharge patient today prior however symptoms recurred resulting in cancellation of patient discharge. NG tube was inserted back placed to low intermittent suction. Patient seen this a.m. admitted to passing flatus. Plan is to remove NG and patient started on clear liquids to be advanced as tolerated. Also did encourage frequent ambulation 2. History of ovarian CA ?Patient managed with NAVIN with bilateral salpingo-oophorectomy with subsequent chemo which she completed on 03/05/2014. Has since remained in remission 3. Peripheral neuropathy ?From patient's previous chemo 4. GERD ?Patient placed on PPI 5. DVT prophylaxis ?Lovenox Inpatient E&M: 22658 Subs Hosp L2
--- NOTE | 2020-01-20 10:02 | PN.SURG_ITS ---
Patient Problems: Active and Suspected Problems (Last Reviewed 01/18/20 @ 11:[address] Rick Calderon MD) SBO (small bowel obstruction) (Acute) Subjective: NG tube is out patient is not complaining of any abdominal pain or nausea or vomiting. Objective: Abdomen is soft nontender and nondistended. - Physical Exam Vitals/I&O's: Vital Signs Temp Pulse Resp BP Pulse Ox 98.2 F 68 18 139/56 H 95 01/20/20 07:53 01/20/20 07:53 01/20/20 07:53 01/20/20 07:53 01/20/20 07:53 Oxygen Delivery Method Room Air Weight: 123 lb 14.397 oz Body Mass Index (BMI) 20.6 Intake and Output for Last 24 Hours 01/18/20 01/19/20 01/20/20 23:59 23:59 23:59 Intake Total 3270.00 / 3270.00 3524.17 / 3524.17 1049.58 / 1049.58 Output Total 50 / 125 2750 / 2750 1650 / 1650 Balance 3220.00 / 3145.00 774.17 / 774.17 -600.42 / -600.42 Laboratory Results 01/20/20 05:40: WBC 6.6, RBC 4.07 L, Hgb 12.8, Hct 39.8, MCV 97.8, MCH 31.4, MCHC 32.2, RDW Std Deviation 45.2 H, RDW Coeff of Jermaine 12.5, Plt Count 192, MPV 10.2, Immature Gran % (Auto) 0.300, Neut % (Auto) 67.9, Lymph % (Auto) 20.2, Eagle % (Auto) 10.5 H, Eos % (Auto) 0.6, Baso % (Auto) 0.5, Absolute Neuts (auto) 4.5, Absolute Lymphs (auto) 1.33, Nucleated RBC % 0 01/20/20 05:40: Sodium 141, Potassium 3.7, Chloride 112 H, Carbon Dioxide 26.0, Anion Gap 3 L, BUN 5 L, Creatinine 0.45 L, Estim Creat Clear Calc 110.58, Est GFR (MDRD) Af Amer 181, Est GFR (MDRD) Non-Af 149, BUN/Creatinine Ratio 11.2, Glucose 104, Calcium 8.2 L Current Medications Acetaminophen (Tylenol) 650 mg PO Q6H PRN PRN PRN Reason: Pain Score 1-10/Temp > 100.7 F Al Hydroxide/Mg Hydroxide (Mylanta Ii) 30 ml PO Q6H PRN PRN PRN Reason: Gastric Burning Albuterol Sulfate (Ventolin Aerosols) 2.5 mg INHALATION Q2H PRN PRN PRN Reason: Shortness of Breath/Wheezing Enoxaparin Sodium (Lovenox) 40 mg SC DAILY [facility] Last Admin: 01/19/20 09:06 Dose: 40 mg Documented by: Pantoprazole Sodium 40 mg/ (Sodium Chloride) 110 mls @ 330 mls/hr IV Q24 [facility] Last Infusion: 01/19/20 09:28 Dose: Infused Documented by: Melatonin (Melatonin) 3 mg PO QHS PRN PRN PRN Reason: INSOMNIA Morphine Sulfate () 2 - 4 mg IV Q3H PRN PRN PRN Reason: Pain Score 6-10/10 Morphine Sulfate () 2 - 4 mg IV Q3H PRN PRN PRN Reason: Pain Score 6-10/10 Last Admin: 01/18/20 13:57 Dose: 2 mg Documented by: Ondansetron HCl (Zofran) 4 mg IV Q8H PRN PRN PRN Reason: NAUSEA/VOMITING Oxycodone HCl (Oxyir) 5 mg PO Q4H PRN PRN PRN Reason: Pain Score 4-5/10 Promethazine HCl (Phenergan) 25 mg IM Q6H PRN PRN PRN Reason: Breakthrough nausea/vomiting Senna/Docusate Sodium (Senokot-S, Shana-Colace) 2 tablet PO BID PRN PRN PRN Reason: Constipation Sodium Chloride () 10 - 40 ml IV UD PRN PRN Reason: SALINE FLUSH Last Admin: 01/18/20 22:47 Dose: 20 ml Documented by: Throat Lozenges (Cepacol Sore Throat Lozenge) 1 lozenge MUCOUS MEM Q2H PRN PRN PRN Reason: SORE THROAT Last Admin: 01/18/20 21:00 Dose: 1 lozenge Documented by: Medical Necessity - Tobacco Use Smoking Status: Never smoker Assessment/Plan All Active Problems (Last Reviewed 09/11/20 @ 11:[address] Rick Calderon MD) Tongue pain (Resolved) SBO (small bowel obstruction) (Acute) Segmental and somatic dysfunction of pelvic region (Resolved) Segmental and somatic dysfunction of lumbar region (Resolved) Patient tolerates a diet may be discharged from my standpoint. Inpatient E&M: 71946 Subs Hosp L2
--- NOTE | 2020-01-22 11:48 | CASEMGMT ---
SON WOODWARD Discharge Follow-up Phone Call: CHUCKY: Lexie Strata: 3 Call Date: 01/22/20 Discharge Date: 01/20/20 Time of Call: 1149 Duration: 3 min Admitting Diagnosis: Small Bowel Obstruction SON WOODWARD completed follow-up phone call after recent hospitalization. Patient states she is doing well. Patient had no questions or concerns regarding discharge instructions. Patient was not given prescriptions at discharge. Patient states she has scheduled her follow-up appointments. Patient has no further questions or concerns at this time.
== END 2020-01-20 10:45 | disposition home or self-care (01) | DRG 390 ==
LOC: ED 09:02 → MS3 11:10
PROVIDERS: Admitting Provider Internal Medicine; Emergency Provider Emergency Medicine; PCP Family Medicine; Visit Provider Internal Medicine
DX: K56.600 Partial intestinal obstruction, unspecified as to cause (principal); Z90.710 Acquired absence of both cervix and uterus; M51.36 Other intervertebral disc degeneration, lumbar region; K21.9 Gastro-esophageal reflux disease without esophagitis; G62.9 Polyneuropathy, unspecified; Z85.43 Personal history of malignant neoplasm of ovary; Z92.21 Personal history of antineoplastic chemotherapy; Z97.8 Presence of other specified devices; Z98.51 Tubal ligation status
CPT/HCPCS: 36415; 74018; 74019; 74150; 74177; 80048; 80053; 81001; 83690; 83735; 85025; 99285; J7030; Q9967; A4216; J2405

== ENCOUNTER → 2020-06-16 07:38 | Outpatient (CLI) | payer MEDICARE, SELFPAY ==
[2020-01-18 12:17] VITALS: BMI 20.6
[2020-06-16 07:52] LABS: Absolute Lymphocyte Count 2.27 X10^3/uL (0.83-4.51); Absolute Neutrophil Count 2.1 X10^3/uL (2.0-7.7); Basophil# 0.05 X10^3/uL; Eosinophil# 0.05 X10^3/uL; Hematocrit 42.5 % (37-47); Lymphocyte # 2.27 X10^3/ul (4.0); Lymphocyte % 46.9 % (19-41); Mean Corp Hgb Conc 32.9 g/dL (32-36); Mean Corpuscular Hgb 31.8 pg (27.0-32.0); Mean Corpuscular Volume 96.6 fL (81-99); Mean Platelet Vol. 10.4 fl (6.2-12.0); Monocyte# 0.37 X10^3/uL; Monocyte% 7.6 % (0-10); NRBC Flagged by Analyzer 0 % (0-5); Neutrophil # 2.09 X10^3/uL (2.7-7.7); Neutrophil % 43.3 % (47-70); Platelet Count 203 K/mm3 (150-450); RBC Distribution Width CV 12.3 % (11.6-14.6); RBC Distribution Width SD 43.8 fl (35.1-43.9); White Blood Count 4.8 K/mm3 (4.4-11.0)
--- NOTE | 2020-06-16 07:53 | CT_ITS ---
STUDY: CT CHEST WITH CONTRAST REASON FOR EXAM: Female, 64 years old. LUNG NODULES,OVARIAN CA FOLLOW UP, NO NEW PROBLEMS RADIATION DOSAGE (If Supplied By Facility): CTDIvol = ( 10.88 ) mGy, DLP = ( 596.60 ) mGycm TECHNIQUE: Transaxial imaging was performed following intravenous administration of Oral and amp;amp; IV Readi-CAT and amp;amp; 100mL Isovue-300. Individualized dose optimization techniques were used for this CT. COMPARISON: Comparison is made with prior examination of 06/11/2019. FINDINGS: Stable small benign-appearing bilateral axillary lymph nodes. Stable scarring in the medial aspect of the left lung apex. Stable 1.2 cm x 0.8 cm groundglass nodular appearance in the superior segment of the right lower lobe laterally as seen on axial image #58. This is unchanged. There is no demonstrated pleural abnormality. Normal heart and pericardium. Normal mediastinum. Normal hilar regions. Normal enhanced pulmonary arteries. Normal aorta arch and descending thoracic aorta. There are mild degenerative changes of the thoracic spine. There is no demonstrated abnormality of the visualized upper abdomen. CT/Chest WITH Contrast IMPRESSION: Stable examination. Electronically Signed: Kraig Molina MD at 13:25 EST , Service support ,
--- NOTE | 2020-06-16 07:53 | CT_ITS ---
STUDY: CT ABDOMEN AND PELVIS WITH CONTRAST REASON FOR EXAM: Female, 64 years old. LUNG NODULES,OVARIAN CA FOLLOW UP, NO NEW PROBLEMS RADIATION DOSAGE (If Supplied By Facility): CTDIvol = ( 10.88 ) mGy, DLP = ( 596.60 ) mGycm TECHNIQUE: Transaxial images were obtained from the dome of the diaphragm to the symphysis pubis with oral contrast. Oral and amp; IV Readi-CAT and amp; 100mL Isovue-300 was administered. Sagittal and coronal images were reconstructed. Individualized dose optimization techniques were used for this CT. COMPARISON: Comparison is made with prior study dated 01/18/2020. FINDINGS: The visualized lung bases are unremarkable. The visualized portions of the heart are within normal limits. Normal liver. Normal gallbladder and extrahepatic biliary system. Normal spleen. Normal pancreas. Normal bilateral adrenal glands. Stable 1.4 sono the cyst in the lower pole of the right kidney. Normal left kidney. Normal visualized stomach. Normal small intestine. Normal colon. The appendix is visualized and appears normal. There is scattered atherosclerotic calcification of the abdominal aorta, without a demonstrated aneurysm. Normal inferior vena cava. Normal retroperitoneum. Normal urinary bladder. There is absence of the uterus consistent with a prior hysterectomy. Normal abdominal wall. Disc space narrowing and degeneration at the L4-L5 and L5-S1 levels. CT/Abdomen/Pelvis W IV Cont ONLY IMPRESSION: No acute abnormality is seen. Electronically Signed: Kraig Molina MD at 13:09 EST , Service support ,
[2020-06-16 08:05] LABS: CREATININE FINGERSTICK 0.9 mg/dL (0.55-1.02)
[2020-06-16 08:09] LABS: AST(SGOT) 21 U/L (15-37); Alanine Aminotransfer ALT/SGPT 26 U/L (13-56); Albumin, Serum 3.8 g/dL (3.2-5.0); Alkaline Phosphatase 118 U/L (45-117); Anion Gap 5 (5-15); BUN 11 mg/dL (7-18); BUN/Creat Ratio 19.4 RATIO (10-20); Calcium,Total 8.7 mg/dL (8.5-10.1); Chloride 106 mmol/L (98-107); Creatinine, Serum 0.57 mg/dL (0.55-1.02); EST Glomerular Filtration Rate 113 mL/min (>60); Est Glom Filt Rate - Afr Amer 137 mL/min (>60); Globulin 3.7 g/dL (2.2-4.2); Glucose 92 mg/dL (74-106); LDH 166 U/L (84-246); Potassium 3.7 mmol/L (3.5-5.1); Protein, Total 7.5 g/dL (6.4-8.2); Sodium Level 138 mmol/L (136-145)
[2020-06-17 08:41] LABS: Cancer Antigen 125 7.8 U/mL (0.0-38.1)
== END ==
PROVIDERS: PCP Family Medicine; Referring Provider Internal Medicine Medical Oncology; Visit Provider Internal Medicine Medical Oncology
DX: R91.8 Other nonspecific abnormal finding of lung field (principal); Z85.43 Personal history of malignant neoplasm of ovary
CPT/HCPCS: 36415; 71260; 74177; 80053; 83615; 85025; 86304; Q9967

== ENCOUNTER → 2020-06-18 13:10 | Outpatient (CLI) | payer MEDICARE, SELFPAY ==
[2020-01-18 12:17] VITALS: BMI 20.6
--- NOTE | 2020-06-18 13:22 | BI_ITS ---
MAMMOGRAPHY - BILATERAL SCREENING REASON FOR EXAM: Female, 64 years old. Routine annual screening examination. PERTINENT HISTORY: Non-contributory. TECHNIQUE: Digital bilateral breast kristopher (3D mammographic acquisition) in the CC and MLO projections. 2-D mediolateral oblique (MLO) and craniocaudad (CC) views of both breasts were obtained. CAD: Full Field Digital Mammography with Computer Added Detection was performed. COMPARISON: Comparison is made with prior study dated 03/19/2019 and 03/10/2018. FINDINGS: Breast Composition: The breasts are extremely dense, which lowers the sensitivity of mammography. There are no dominant masses or suspicious calcifications. Stable benign-appearing bilateral axillary lymph nodes. No other significant abnormalities are identified. There has been no significant change since the prior study. BI/SCRN MAMM (CAD)W/KRISTOPHER BILAT IMPRESSION: Stable bilateral screening mammogram. Yearly follow-up mammogram recommended. (A) ASSESSMENT CATEGORY: BIRADS Category 2: Benign. A letter regarding these results will be sent to the patient by the facility within 30 days. Approximately 10% of breast cancers are not detected by mammography. A normal mammogram should not delay biopsy of a clinically suspicious abnormality. [id number] Electronically Signed: Kraig Molina MD at 13:55 EST , Service support ,
== END ==
PROVIDERS: PCP Family Medicine; Referring Provider Family Medicine; Visit Provider Family Medicine
DX: Z12.31 Encounter for screening mammogram for malignant neoplasm of breast (principal)
CPT/HCPCS: 77063; 77067

== ENCOUNTER 2021-06-19 08:17 | Outpatient (CLI) | payer MEDICARE, SELFPAY ==
--- NOTE | 2021-06-19 08:28 | BI_ITS ---
MAMMOGRAPHY - BILATERAL SCREENING REASON FOR EXAM: Female, 65 years old. Routine annual screening examination. PERTINENT HISTORY: Non-contributory. TECHNIQUE: Digital bilateral breast kristopher (3D mammographic acquisition) in the CC and MLO projections. 2-D mediolateral oblique (MLO) and craniocaudad (CC) views of both breasts were obtained. CAD: Full Field Digital Mammography with Computer Added Detection was performed. COMPARISON: Comparison is made with prior study dated 06/18/2020 and 03/19/2019. FINDINGS: Breast Composition: The breasts are extremely dense, which lowers the sensitivity of mammography. There are no dominant masses or suspicious calcifications. Stable small benign-appearing bilateral axillary lymph nodes. No other significant abnormalities are identified. There has been no significant change since the prior study. BI/SCRN MAMM (CAD)W/KRISTOPHER BILAT IMPRESSION: Stable bilateral screening mammogram. Yearly follow-up mammogram recommended. (A) ASSESSMENT CATEGORY: BIRADS Category 2: Benign. A letter regarding these results will be sent to the patient by the facility within 30 days. Approximately 10% of breast cancers are not detected by mammography. A normal mammogram should not delay biopsy of a clinically suspicious abnormality. [id number] Electronically Signed: Kraig Molina MD at 10:32 EST ,
== END 2021-06-19 23:59 | disposition home or self-care (01) ==
LOC: OPBI 08:26
PROVIDERS: PCP Family Medicine; Referring Provider Family Medicine; Visit Provider Family Medicine
DX: Z12.31 Encounter for screening mammogram for malignant neoplasm of breast (principal)
CPT/HCPCS: 77063; 77067

== ENCOUNTER → 2021-10-10 | Outpatient (CLI) | payer MEDICARE, SELFPAY ==
[2021-10-10 07:28] LABS: Absolute Lymphocyte Count 1.88 X10^3/uL (0.83-4.51); Absolute Neutrophil Count 2.4 X10^3/uL (2.0-7.7); Basophil# 0.03 X10^3/uL; Basophil% 0.6 % (0-1); Hemoglobin 12.6 g/dL (12.0-15.0); Lymphocyte # 1.88 X10^3/ul (0.83-4.51); Lymphocyte % 37.7 % (19-41); Mean Corp Hgb Conc 32.3 g/dL (32-36); Mean Corpuscular Hgb 31.1 pg (27.0-32.0); Mean Corpuscular Volume 96.3 fL (81-99); Mean Platelet Vol. 10.2 fl (6.2-12.0); Monocyte# 0.53 X10^3/uL; Monocyte% 10.6 % (0-10); NRBC Flagged by Analyzer 0 % (0-5); Neutrophil # 2.44 X10^3/uL (2.7-7.7); Neutrophil % 48.9 % (47-70); Platelet Count 269 K/mm3 (150-450); RBC Distribution Width CV 12.3 % (11.6-14.6); Red Blood Count 4.05 M/mm3 (4.2-5.4)
[2021-10-10 07:48] LABS: ALB/GLOB Ratio 1.1 RATIO (0.9-2.4); AST(SGOT) 13 U/L (15-37); Alanine Aminotransfer ALT/SGPT 19 U/L (13-56); Albumin, Serum 3.6 g/dL (3.2-5.0); Alkaline Phosphatase 113 U/L (45-117); Anion Gap 4 (5-15); BUN 17 mg/dL (7-18); BUN/Creat Ratio 33.1 RATIO (10-20); Calcium,Total 8.5 mg/dL (8.5-10.1); Chloride 111 mmol/L (98-107); Creatinine, Serum 0.51 mg/dL (0.55-1.02); EST Glomerular Filtration Rate 127 mL/min (>60); Est Glom Filt Rate - Afr Amer 154 mL/min (>60); Globulin 3.3 g/dL (2.2-4.2); Glucose 91 mg/dL (74-106); LDH 172 U/L (84-246); Potassium 3.3 mmol/L (3.5-5.1); Protein, Total 6.9 g/dL (6.4-8.2); Sodium Level 141 mmol/L (136-145)
[2021-10-11 08:34] LABS: Cancer Antigen 125 6.1 U/mL (0.0-38.1)
== END | disposition home or self-care (01) ==
LOC: LAB 06:48
PROVIDERS: PCP Family Medicine; Visit Provider Internal Medicine Medical Oncology
DX: C56.9 Malignant neoplasm of unspecified ovary (principal)
CPT/HCPCS: 36415; 80053; 83615; 85025; 86304

== ENCOUNTER → 2021-10-12 | Outpatient (CLI) | payer MEDICARE, SELFPAY ==
--- NOTE | 2021-10-12 07:02 | CT_ITS ---
STUDY: CT CHEST WITHOUT CONTRAST REASON FOR EXAM: Female, 65 years old. Lung nodule RADIATION DOSAGE (If Supplied By Facility): CTDIvol = ( 7.62 ) mGy, DLP = ( 207.98 ) mGycm. Individualized dose optimization techniques were used for this CT.? FLUOROSCOPY TIME (if supplied): ( ) minutes/seconds TECHNIQUE: 2.5 mm helical cuts were performed through the chest with 75 mL ISOVUE 300 contrast. MPR performed COMPARISON: Multiple previous CTs, the most recent from 06/16/2020 FINDINGS: Stable scarring again noted in the left apex, the previously noted 1.2 x 0.8 cm groundglass nodule in the superior segment of the right lower lobe has increased in size since the previous study and now measures 1.39 x 1.44 cm. Since it has increased in size since the previous study, further evaluation with PET/CT scan or biopsy recommended. No other suspicious noncalcified mass or nodule is noted. There is no organized infiltrate. Soft tissue windows show a normal-appearing thyroid gland. No suspicious axillary, mediastinal, or perihilar adenopathy. No pleural or pericardial effusions. No coronary artery calcifications. Bony structures show degenerative change. Limited cuts through the upper abdomen do not show any suspicious abnormality CT/Chest WITH Contrast IMPRESSION: Previously seen noted groundglass nodule in the superior segment of the right lower lobe is again identified on current study. It is best seen on axial image 52. It is increased in size however compared to the previous study now measuring 1.39 x 1.44 cm while on the previous study and measured 1.2 x 0.8 cm. This nodule is suspicious and further evaluation with PET/CT scan or biopsy recommended. Stable fibrotic scarring in the left apex. No superimposed acute process, no suspicious adenopathy Degenerative bony changes Electronically Signed: Mervin Hernandes MD at 8:09 EDT ,
== END | disposition home or self-care (01) ==
LOC: CT 07:01
PROVIDERS: PCP Family Medicine; Referring Provider Internal Medicine Medical Oncology; Visit Provider Internal Medicine Medical Oncology
DX: R91.8 Other nonspecific abnormal finding of lung field (principal)
CPT/HCPCS: 71260; Q9967

== ENCOUNTER → 2022-03-04 | Outpatient (CLI) | payer MEDICARE, SELFPAY ==
[2022-03-04 12:17] LABS: Absolute Lymphocyte Count 1.61 X10^3/uL (0.83-4.51); Absolute Neutrophil Count 3.5 X10^3/uL (2.0-7.7); Basophil# 0.01 X10^3/uL; Basophil% 0.2 % (0-1); Eosinophil# 0.07 X10^3/uL; Eosinophils% 1.2 % (0-5); Hematocrit 43.9 % (37-47); Hemoglobin 14.9 g/dL (12.0-15.0); Lymphocyte # 1.61 X10^3/ul (0.83-4.51); Mean Corp Hgb Conc 33.9 g/dL (32-36); Mean Corpuscular Hgb 31.8 pg (27.0-32.0); Mean Corpuscular Volume 93.8 fL (81-99); Mean Platelet Vol. 10.5 fl (6.2-12.0); Monocyte# 0.57 X10^3/uL; Monocyte% 9.9 % (0-10); NRBC Flagged by Analyzer 0 % (0-5); Neutrophil % 60.7 % (47-70); Platelet Count 214 K/mm3 (150-450); RBC Distribution Width CV 12.4 % (11.6-14.6); RBC Distribution Width SD 42.5 fl (35.1-43.9); Red Blood Count 4.68 M/mm3 (4.2-5.4); White Blood Count 5.8 K/mm3 (4.4-11.0)
[2022-03-04 12:36] LABS: AST(SGOT) 18 U/L (15-37); Alanine Aminotransfer ALT/SGPT 24 U/L (13-56); Albumin, Serum 3.8 g/dL (3.2-5.0); Alkaline Phosphatase 109 U/L (45-117); Anion Gap 7 (5-15); BUN 17 mg/dL (7-18); Calcium,Total 9.2 mg/dL (8.5-10.1); Chloride 107 mmol/L (98-107); Cholesterol 190 mg/dL (200); Creatinine, Serum 0.61 mg/dL (0.55-1.02); EST Glomerular Filtration Rate 105 mL/min (>60); Est Glom Filt Rate - Afr Amer 126 mL/min (>60); Glucose 102 mg/dL (74-106); High Density Lipoprotein 55 mg/dL; Potassium 3.9 mmol/L (3.5-5.1); Protein, Total 7.8 g/dL (6.4-8.2); Sodium Level 137 mmol/L (136-145); Triglycerides 106 mg/dL; Very Low Density Lipoprotein 21 mg/dL (5-40)
== END | disposition home or self-care (01) ==
LOC: BFHLAB 08:25
PROVIDERS: PCP Family Medicine; Visit Provider Family Medicine
DX: E78.5 Hyperlipidemia, unspecified (principal); Z51.81 Encounter for therapeutic drug level monitoring
CPT/HCPCS: 36415; 80053; 80061; 85025

== ENCOUNTER 2022-04-12 06:51 | Outpatient (CLI) | payer MEDICARE, SELFPAY ==
--- NOTE | 2022-04-12 06:52 | CT_ITS ---
STUDY: CT CHEST WITH CONTRAST REASON FOR EXAM: Female, 66 years old. LUNG NODULES. History of ovarian carcinoma. RADIATION DOSAGE (If Supplied By Facility): CTDIvol = ( 9.45 ) mGy, DLP = ( 218.00 ) mGycm TECHNIQUE: Transaxial imaging was performed following intravenous administration of IV 100mL Isovue-300. Multiplanar coronal and sagittal images were reformatted. Individualized dose optimization techniques were used for this CT. COMPARISON: Comparison is made with prior study dated 10/12/2021. FINDINGS: CHEST Stable scarring in the left lung apex. The previously seen groundglass nodular appearance in the peripheral lateral aspect of the superior segment of the right lower lobe has decreased slightly in size. It presently measures 1.3 cm x 1.2 cm. There is no demonstrated pleural abnormality. Normal heart and pericardium. No coronary artery calcifications are seen. Normal mediastinum. Normal hilar regions. Normal unenhanced pulmonary arteries. Normal aorta arch and descending thoracic aorta. There are mild degenerative changes of the thoracic spine. There is no demonstrated abnormality of the visualized upper abdomen. CT/Chest WITH Contrast IMPRESSION: Slight decrease in size of the nodular groundglass appearance density seen in the superior lateral aspect of the right lower lobe. Stable scarring in the left lung apex. Electronically Signed: Kraig Molina MD at 11:09 EST ,
== END 2022-04-12 23:59 | disposition home or self-care (01) ==
LOC: CT 06:52
PROVIDERS: PCP Family Medicine; Visit Provider Internal Medicine Medical Oncology
DX: R91.8 Other nonspecific abnormal finding of lung field (principal); J98.4 Other disorders of lung
CPT/HCPCS: 71260; Q9967

== ENCOUNTER 2022-04-13 06:23 | Outpatient (CLI) | payer MEDICARE, SELFPAY ==
[2022-04-13 07:29] LABS: Absolute Lymphocyte Count 2.44 X10^3/uL (0.83-4.51); Absolute Neutrophil Count 2.5 X10^3/uL (2.0-7.7); Basophil# 0.03 X10^3/uL; Basophil% 0.5 % (0-1); Eosinophil# 0.07 X10^3/uL; Eosinophils% 1.3 % (0-5); Hematocrit 43.5 % (37-47); Hemoglobin 13.9 g/dL (12.0-15.0); Lymphocyte # 2.44 X10^3/ul (0.83-4.51); Lymphocyte % 43.9 % (19-41); Mean Corpuscular Volume 96.9 fL (81-99); Mean Platelet Vol. 10.3 fl (6.2-12.0); Monocyte# 0.49 X10^3/uL; Monocyte% 8.8 % (0-10); NRBC Flagged by Analyzer 0 % (0-5); Neutrophil # 2.52 X10^3/uL (2.7-7.7); Neutrophil % 45.3 % (47-70); Platelet Count 256 K/mm3 (150-450); RBC Distribution Width CV 13.3 % (11.6-14.6); Red Blood Count 4.49 M/mm3 (4.2-5.4); White Blood Count 5.6 K/mm3 (4.4-11.0)
[2022-04-13 07:54] LABS: AST(SGOT) 13 U/L (15-37); Alanine Aminotransfer ALT/SGPT 21 U/L (13-56); Albumin, Serum 3.7 g/dL (3.2-5.0); Alkaline Phosphatase 97 U/L (45-117); Anion Gap 7 (5-15); BUN 16 mg/dL (7-18); BUN/Creat Ratio 30.2 RATIO (10-20); Calcium,Total 8.8 mg/dL (8.5-10.1); Chloride 107 mmol/L (98-107); Creatinine, Serum 0.53 mg/dL (0.55-1.02); EST Glomerular Filtration Rate 122 mL/min (>60); Est Glom Filt Rate - Afr Amer 148 mL/min (>60); Globulin 3.7 g/dL (2.2-4.2); Glucose 92 mg/dL (74-106); LDH 180 U/L (84-246); Potassium 3.5 mmol/L (3.5-5.1); Protein, Total 7.4 g/dL (6.4-8.2); Sodium Level 142 mmol/L (136-145)
[2022-04-14 09:26] LABS: Cancer Antigen 125 8.4 U/mL (0.0-38.1)
== END 2022-04-13 23:59 | disposition home or self-care (01) ==
LOC: LAB 06:25
PROVIDERS: PCP Family Medicine; Referring Provider Internal Medicine Medical Oncology; Visit Provider Internal Medicine Medical Oncology
DX: Z85.43 Personal history of malignant neoplasm of ovary (principal)
CPT/HCPCS: 36415; 80053; 83615; 85025; 86304

== ENCOUNTER → 2023-01-28 | Outpatient (CLI) | payer MEDICARE, SELFPAY ==
--- NOTE | 2023-01-28 08:24 | BI_ITS ---
MAMMOGRAPHY - BILATERAL SCREENING REASON FOR EXAM: Female, 67 years old. Routine annual screening examination. PERTINENT HISTORY: Non-contributory. TECHNIQUE: Digital bilateral breast kristopher (3D mammographic acquisition) in the CC and MLO projections. 2-D mediolateral oblique (MLO) and craniocaudad (CC) views of both breasts were obtained. CAD: Full Field Digital Mammography with Computer Added Detection was performed. COMPARISON: Comparison is made with prior study dated June 19, 2021 and June 18, 2020. FINDINGS: Breast Composition: The breasts are extremely dense, which lowers the sensitivity of mammography. There are no dominant masses or suspicious calcifications. Stable fat-containing bilateral axillary lymph nodes. No other significant abnormalities are identified. There has been no significant change since the prior study. BI/SCRN MAMM (CAD)W/KRISTOPHER BILAT IMPRESSION: Stable bilateral screening mammogram. Yearly follow-up mammogram recommended. (A) ASSESSMENT CATEGORY: BIRADS Category 2: Benign. A letter regarding these results will be sent to the patient by the facility within 30 days. Approximately 10% of breast cancers are not detected by mammography. A normal mammogram should not delay biopsy of a clinically suspicious abnormality. [id number] Electronically Signed: Kraig Molina MD at 9:34 EDT ,
== END | disposition home or self-care (01) ==
LOC: OPBI 08:22
PROVIDERS: PCP Family Medicine; Referring Provider Family Medicine; Visit Provider Family Medicine
DX: Z12.31 Encounter for screening mammogram for malignant neoplasm of breast (principal)
CPT/HCPCS: 77063; 77067

== ENCOUNTER → 2023-03-05 | Outpatient (CLI) | payer MEDICARE, SELFPAY ==
[2023-03-05 08:12] LABS: Absolute Lymphocyte Count 2.13 X10^3/uL (0.83-4.51); Basophil# 0.05 X10^3/uL; Basophil% 1.1 % (0-1); Eosinophils% 2.1 % (0-5); Hematocrit 39.7 % (37-47); Lymphocyte # 2.13 X10^3/ul (0.83-4.51); Lymphocyte % 44.7 % (19-41); Mean Corp Hgb Conc 32.7 g/dL (32-36); Mean Corpuscular Hgb 31.3 pg (27.0-32.0); Mean Corpuscular Volume 95.4 fL (81-99); Mean Platelet Vol. 9.6 fl (6.2-12.0); Monocyte# 0.48 X10^3/uL; Monocyte% 10.1 % (0-10); NRBC Flagged by Analyzer 0 % (0-5); Neutrophil # 1.99 X10^3/uL (2.7-7.7); Neutrophil % 41.8 % (47-70); Platelet Count 221 K/mm3 (150-450); RBC Distribution Width CV 12.5 % (11.6-14.6); RBC Distribution Width SD 43.9 fl (35.1-43.9); Red Blood Count 4.16 M/mm3 (4.2-5.4); White Blood Count 4.8 K/mm3 (4.4-11.0)
[2023-03-05 08:40] LABS: AST(SGOT) 12 U/L (15-37); Alanine Aminotransfer ALT/SGPT 18 U/L (13-56); Albumin, Serum 3.5 g/dL (3.2-5.0); Alkaline Phosphatase 95 U/L (45-117); Anion Gap 2 (5-15); BUN 10 mg/dL (7-18); BUN/Creat Ratio 18.3 RATIO (10-20); Calcium,Total 8.8 mg/dL (8.5-10.1); Chloride 109 mmol/L (98-107); Cholesterol 205 mg/dL (200); Creatinine, Serum 0.55 mg/dL (0.55-1.02); EST Glomerular Filtration Rate 118 mL/min (>60); Est Glom Filt Rate - Afr Amer 142 mL/min (>60); Globulin 3.5 g/dL (2.2-4.2); Glucose 92 mg/dL (74-106); High Density Lipoprotein 58 mg/dL; Potassium 3.7 mmol/L (3.5-5.1); Sodium Level 139 mmol/L (136-145); Triglycerides 66 mg/dL; Very Low Density Lipoprotein 13 mg/dL (5-40)
[2023-03-07 10:31] LABS: Vitamin D,25 Hydroxy 28.5 ng/mL
== END | disposition home or self-care (01) ==
LOC: LAB 07:27
PROVIDERS: PCP Family Medicine; Referring Provider Family Medicine; Visit Provider Family Medicine
DX: Z51.81 Encounter for therapeutic drug level monitoring (principal); E78.5 Hyperlipidemia, unspecified; E55.9 Vitamin D deficiency, unspecified
CPT/HCPCS: 36415; 80053; 80061; 82306; 85025

== ENCOUNTER → 2024-04-23 | Outpatient (CLI) | payer MEDICARE, SELFPAY ==
[2024-04-23 12:16] LABS: Absolute Lymphocyte Count 1.59 X10^3/uL (0.83-4.51); Absolute Neutrophil Count 2.8 X10^3/uL (2.0-7.7); Basophil# 0.05 X10^3/uL; Eosinophil# 0.09 X10^3/uL; Eosinophils% 1.8 % (0-5); Hematocrit 43.3 % (37-47); Hemoglobin 14.5 g/dL (12.0-15.0); Lymphocyte # 1.59 X10^3/ul (0.83-4.51); Lymphocyte % 31.5 % (19-41); Mean Corp Hgb Conc 33.5 g/dL (32-36); Mean Corpuscular Hgb 31.7 pg (27.0-32.0); Mean Corpuscular Volume 94.7 fL (81-99); Mean Platelet Vol. 10.4 fl (6.2-12.0); Monocyte# 0.47 X10^3/uL; Monocyte% 9.3 % (0-10); NRBC Flagged by Analyzer 0 % (0-5); Neutrophil # 2.83 X10^3/uL (2.7-7.7); Neutrophil % 56.2 % (47-70); Platelet Count 246 K/mm3 (150-450); RBC Distribution Width CV 12.1 % (11.6-14.6); RBC Distribution Width SD 42.4 fl (35.1-43.9); Red Blood Count 4.57 M/mm3 (4.2-5.4)
[2024-04-23 12:57] LABS: AST(SGOT) 12 U/L (15-37); Alanine Aminotransfer ALT/SGPT 23 U/L (13-56); Albumin, Serum 3.8 g/dL (3.2-5.0); Alkaline Phosphatase 90 U/L (45-117); Anion Gap 8 (5-15); BUN 15 mg/dL (7-18); BUN/Creat Ratio 24.4 RATIO (10-20); Calcium,Total 9.3 mg/dL (8.5-10.1); Chloride 106 mmol/L (98-107); Cholesterol 228 mg/dL (200); Creatinine, Serum 0.62 mg/dL (0.55-1.02); EST Glomerular Filtration Rate 102 mL/min (>60); Est Glom Filt Rate - Afr Amer 124 mL/min (>60); Glucose 93 mg/dL (74-106); High Density Lipoprotein 64 mg/dL; LDH 223 U/L (84-246); Potassium 3.7 mmol/L (3.5-5.1); Protein, Total 7.8 g/dL (6.4-8.2); Sodium Level 138 mmol/L (136-145); Triglycerides 99 mg/dL; Very Low Density Lipoprotein 20 mg/dL (5-40)
[2024-04-23 18:34] LABS: Vitamin D,25 Hydroxy 23.2 ng/mL
[2024-04-24 04:07] LABS: Cancer Antigen 125 8.3 U/mL (0.0-38.1)
== END | disposition home or self-care (01) ==
LOC: BFHLAB 08:59
PROVIDERS: PCP Family Medicine; Referring Provider Family Medicine; Visit Provider Family Medicine
DX: Z51.81 Encounter for therapeutic drug level monitoring (principal); E78.5 Hyperlipidemia, unspecified; E55.9 Vitamin D deficiency, unspecified; Z85.43 Personal history of malignant neoplasm of ovary
CPT/HCPCS: 36415; 80053; 80061; 82306; 83615; 85025; 86304

== ENCOUNTER → 2024-05-03 | Outpatient (CLI) | payer MEDICARE, SELFPAY ==
--- NOTE | 2024-05-03 08:17 | BI_ITS ---
MAMMOGRAPHY - BILATERAL SCREENING 3-D TOMOSYNTHESIS REASON FOR EXAM: Female, 68 years old. SCREENING PERTINENT HISTORY: No significant family history. TECHNIQUE: 2-D mammograms and 3-D Tomosynthesis of the breast (s) were performed. CAD was performed. COMPARISON: 01/28/2023 FINDINGS: The breast composition is composed of scattered fibroglandular density. Scattered benign calcifications are seen. No dense spiculated masses or suspicious microcalcifications are identified. No architectural distortion is identified. There is no skin thickening or retraction. There has been no significant change since the prior study. BI/SCRN MAMM (CAD)W/KRISTOPHER BILAT IMPRESSION: No mammographic signs of malignancy. Routine yearly mammograms recommended. ASSESSMENT CATEGORY: BIRADS Category 1: Negative. A letter regarding these results will be sent to the patient by the facility within 30 days. FOLLOW UP RECOMMENDATION: Yearly follow up mammogram recommended. (A) Approximately 10% of breast cancers are not detected by mammography. A normal mammogram should not delay biopsy of a clinically suspicious abnormality. Electronically Signed: Janak Henry MD at 9:25 EST ,
== END | disposition home or self-care (01) ==
LOC: OPBI 08:15
PROVIDERS: PCP Family Medicine; Referring Provider Family Medicine; Visit Provider Family Medicine
DX: Z12.31 Encounter for screening mammogram for malignant neoplasm of breast (principal)
CPT/HCPCS: 77063; 77067

== ENCOUNTER → 2024-05-14 | Outpatient (CLI) | payer MEDICARE, SELFPAY ==
--- NOTE | 2024-05-14 07:21 | CT_ITS ---
HISTORY: LUNG NODULES, HX OF OVARIAN CA. TECHNIQUE: CT of the chest was performed after the intravenous administration of 100 mL Isovue-370. Coronal and sagittal reformatted images. Individualized dose optimization techniques were used for this CT. 765 images. COMPARISON: 04/12/2022. 10/12/2021. FINDINGS: CENTRAL AIRWAYS: Patent. LUNGS: Chronic biapical scarring. 1.7 cm mixed groundglass and solid nodule in the right lower lobe, previously 1.6 cm but the solid component now measures 1.1 cm increased in size from prior. Stable 3 mm groundglass nodule more inferiorly and posteriorly. PLEURA: No pneumothorax or significant pleural effusion. HEART/PERICARDIUM: Heart within normal limits in size. No pericardial effusion. AORTA/VESSELS: No thoracic aortic aneurysm or dissection flap. Mild atherosclerosis. No large central filling defect identified in the pulmonary arteries. MEDIASTINUM/JAY: No pathologically enlarged lymph nodes. OSSEOUS STRUCTURES: Mild degenerative change. Chronic mild T6 and T8 compression fractures. UPPER ABDOMEN: Unremarkable. CT/Chest WITH Contrast IMPRESSION: 1.7 cm mixed solid and groundglass nodule in the right lower lobe, slightly increased in overall size but with increased size of the solid component. Recommend correlation with PET-CT or biopsy to assess for neoplasm. Electronically Signed: Lacy Charles MD at 16:00 EST ,
== END | disposition home or self-care (01) ==
LOC: CT 07:20
PROVIDERS: PCP Family Medicine; Referring Provider Internal Medicine Medical Oncology; Visit Provider Internal Medicine Medical Oncology
DX: R91.8 Other nonspecific abnormal finding of lung field (principal); Z85.43 Personal history of malignant neoplasm of ovary
CPT/HCPCS: 71260; Q9967; A4216

== ENCOUNTER → 2024-06-13 | Outpatient (CLI) | payer MEDICARE, SELFPAY ==
--- NOTE | 2024-06-13 10:52 | BD_ITS ---
PROCEDURE: DEXA BONE DENSITY STUDY REASON FOR EXAM: 68-year-old female. Osteoporosis screening TECHNIQUE: DEXA scan of the lumbar spine and both hips. COMPARISON: None. FINDINGS: T-SCORES Lumbar spine: T-score -2.9. (Bone mineral density 0.729 g per cm2. Left hip: T-score -3.2. (Bone mineral density 0.490 g per cm2.) Right hip: T-score -3.2. (Bone mineral density 0.492 g per cm2.) FRAX* Results: 10 Year Probability of Fracture: Hip Fracture(1): 6.3% Major Osteoporotic Fracture(2): 17% *FRAX is a trademark of the [employer]'s [place] for Metabolic Bone Disease, World Health Organization (WHO) Collaborating [place]. 1-The 10-year probability of fracture may be lower than reported if the patient has received treatment. 2-Major Osteoporotic Fracture: Clinical Spine, Forearm, Hip or Shoulder. The T-scores are also available for review on the [facility] PACS or by accessing the [facility] electronic medical record. BD/Dexa Bone Density Study IMPRESSION: Osteoporosis. Reading Location: [facility]
== END | disposition home or self-care (01) ==
LOC: OPBD 10:47
PROVIDERS: PCP Family Medicine; Referring Provider Family Medicine; Visit Provider Family Medicine
DX: M81.0 Age-related osteoporosis without current pathological fracture (principal)
CPT/HCPCS: 77080

== ENCOUNTER 2024-06-20 08:09 | Day surgery (SDC) | payer MEDICARE, SELFPAY ==
[2024-06-20] VITALS (7 sets, daily range): BP systolic 98–142; BP diastolic 61–66; PULSE 54–85; RESP 16; TEMP 36.1–36.7; O2SAT 100; BMI 19.5
--- NOTE | 2024-06-20 08:24 | H&P.OPEN ---
[facility] - General General Date of Service: 06/20/24 HPI Narrative BRANDON MONSIVAIS, is a 68 F who presents for screening colonoscopy. Patient's last colonoscopy was in [address] Osman negative per patient. Patient has bowel moods daily denies any blood. Patient denies any family history of colon cancer. Patient denies any chronic abdominal pain/nausea vomiting/reflux. [facility] Medical History Wears glasses Cancer High cholesterol Non-smoker History of echocardiogram History of stress test History of fistula Acid reflux Rectal vaginal fistula Peripheral neuropathy Home Medications ?Medication ?Instructions ?Recorded ?Last Taken ?Type cholecalciferol (vitamin D3) 50 50 mcg PO .2x/week 04/24/24 06/15/24 History mcg (2,000 unit) capsule magnesium oxide 400 mg PO QDAY 04/24/24 06/15/24 History omega 7-fxu-nzo-fish oil 1,200 mg 1 cap PO QDAY 04/24/24 06/15/24 History (144 mg-216 mg) capsule (Fish Oil) Allergy/AdvReac Type Severity Reaction Status Date / Time No Known Allergies Allergy Verified 06/20/24 08:26 Family History Sister Cancer Lung Mother Alzheimer disease Surgical History History of bilateral cataract extraction Hx of colonoscopy History of dilation and curettage History of tubal ligation History of hysterectomy Social History household members: spouse current occupational status: retired Smoking Status: Never smoker alcohol intake: never substance use type: does not use what type of physical activity do you participate in: walking frequency: 1-2 times per week Past Medical/Surgical History Planned Operation Planned Operative Procedure(s): colonoscopy S.O.S: No Previous Hospitalizations/Surgeries HX Hospitalizations: Yes (HYSTER 10/20) HX of Surgeries: FISTULA REPAIR TUBAL-D/C 93, HYSTER AND BOTH OVARIES REMOVED 10/16/13 Any Problems With Anesthesia: No You/Your Family Experience Fever (Hyperthermia) With Anes: No Cholinesterase deficiency: No Cardiovascular Hx Chest Pain within Last 2 months: No Hx of Irregular Heartbeat and/or Afib: No Hx Heart Attack: No Hx Congestive Heart Failure: No Hx Rheumatic Fever: No Hx Hypertension: No Hx Internal Defibrillator: No Hx Pacemaker: No Hx Cardiac Catheterization: No Hx Cardiac Surgery/Stents/Etc.: No Hx Stress Test: No Hx Pain in Legs when Walking/Leg Cramps: No Respiratory Chronic Cough: No HX of Shortness of Breath: No Hoarseness: No Hx Chronic Obstructive Pulmonary Disease (COPD): No Hx Asthma: No Hx Emphysema: No Hx Sleep Apnea: No CPAP: No BIPAP: No Hx Respiratory Tract Infection/Cold (presently): No Do You Snore Loudly (louder than talking or can be heard): No Do You Often Feel Tired/ Fatigued/ Sleepy Dring Daytime?: No Has Anyone Observed You Stop Breathing During Sleep?: No Result (for STOP score): Negative Hx Smoking: No Smoking Status: Never smoker Gastrointestinal Hx Gastrointestinal Disorders: No Hx Gastrointestinal Bleed: No Hx Ulcer: No Hx Hiatal Hernia: No Difficulty Chewing/Swallowing: No Special diet followed at home: No Hx Unplanned Weight Loss of 20#: No HX Unplanned Weight Gain of 20#: No Neurological Hx Seizures: No HX Syncope/Blackout Spells/Unconsciousness: No Hx Transient Ischemic Attacks (TIA): No Hx Multiple Sclerosis: No Hx Parkinson's Disease: No Hx Head/Neck Injury: No Hx Headaches: No Hx Back Injury/Pain: 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) Recent Onset of Speech Difficulty: No Restless Legs: No Blood Disorder Hx Leukemia: No Bleeding Tendencies: No Hx Deep Vein Thrombosis: No Hx High Cholesterol: No Blood Transmitted Disease: No Hx Hepatitis: No Hx Cirrhosis: No Hx Anemia: No Hx Blood Disorders: No Reproduction Is Patient Lactating: No Hx Hysterectomy: No Hx Tubal Ligation: Yes Are You Post Menopause: No Genitourinary Hx Renal Disease: No Hx Dialysis: No Musculoskeletal Hx Arthritis: No Hx Rheumatoid Arthritis: No Hx Gout: No Recent Onset of an Orthopedic Problem: No Endocrine Hx Diabetes: No Thyroid Disease: No Hx Steroid Therapy: No Psycho/Social Hx Substance Use: No Hx Alcohol Use: No Hx Anxiety: No Hx Depression: No Mental Illness: No Hx Dementia: No Miscellaneous Hx Cancer: Yes (ovarian cancer, CHEMO 2014, TOTAL HYSTER) Recent Exposure to Contagious Disease: No Hx of C-Diff: No Any Loose Teeth: No Allergies No Known Allergies Allergy (Verified 06/20/24 08:26) Discharge Is Pt Admitted From a Residential, or a Skilled Nursing: No Who Could Help: After D/C, Where Do you Plan to Go: Return Home From the PAT History Number of Risk Factors: 1 Physical Exam Const alert, oriented x3 and no apparent distress HEENT normocephalic and head/scalp atraumatic Resp normal respiratory effort Cardio regular rate GI soft to palpation and non-tender; Negative for non-distended Palpation: Negative for guarding Extremity no clubbing, cyanosis or edema Skin no rashes or lesions noted Neuro CN's II-XII intact bilaterally Psych mental status grossly normal Assessment & Plan Assessment/Plan (1) Encounter for screening for malignant neoplasm of colon: Surgery Risks - Colonoscopy I discussed with the patient the risks of the procedure: Yes Risks Include but are not Limited To: Risks include but are not limited to: Bleeding, perforation requiring further surgery, inability to complete colonoscopy requiring barium enema.
--- NOTE | 2024-06-20 08:47 | PCM.PRE.AN2 ---
ASA Classification* ASA Classification ASA Classification: 2 Assessment & Plan Anesthesia* Anesthesia Assessment Anesthesia Assessment: Discussed sedation and/or anesthesia options, risks, benefits, and alternatives with patient/parents/legal guardian/POA. Questions invited. The patient/parents/legal guardian/POA seems to understand and agrees to proceed with anesthesia plan. Reviewed the physical assessment, medical history, allergy history and patient home medications list prior to surgery/procedure/anesthetic and documented any changes. Performed airway and anesthesia risk assessments. Anesthesia Type Anesthesia Type: MAC Anesthesia Focused Assessment* Temperature: 97 F Pulse Rate: 85 Blood Pressure: 142/63 Respiratory Rate: 16 Pulse Ox: 100 Airway Assessment Mouth opens: >3 cm Mallampati Score: II Focused Labs Anesthesia Preop lab: CBC WBC 5.0 K/mm3 (4.4-11.0) 04/23/24 09:00 04/23/24 RBC 4.57 M/mm3 (4.2-5.4) 04/23/24 09:00 04/23/24 Hgb 14.5 g/dL (12.0-15.0) 04/23/24 09:00 04/23/24 Hct 43.3 % (37-47) 04/23/24 09:00 04/23/24 Plt Count 246 K/mm3 (150-450) 04/23/24 09:00 04/23/24 CHEMISTRY Potassium 3.7 mmol/L (3.5-5.1) 04/23/24 09:00 04/23/24 Sodium 138 mmol/L (136-145) 04/23/24 09:00 04/23/24 Magnesium 2.2 mg/dL (1.6-2.6) 01/19/20 06:10 01/19/20 Phosphorus 3.5 mg/dL (2.5-4.9) 12/06/19 06:36 12/06/19 BUN 15 mg/dL (7-18) 04/23/24 09:00 04/23/24 Creatinine 0.62 mg/dL (0.55-1.02) 04/23/24 09:00 04/23/24 Glucose 93 mg/dL (74-106) 04/23/24 09:00 04/23/24 COAG PT 12.4 SECONDS (11.7-14.9) 05/05/16 04:23 05/05/16 Pre-Assessment Diagnosis/Proposed Procedure Planned Operative Procedure(s): colonoscopy Anesthesia History Anesthesia History - photographic hand developer: Anesthesia History - photographic hand developer Hx Hospitalization Yes: HYSTER 10/2006/20/24 08:24 Any Problems With Anesthesia No 06/20/24 08:24 Cholinesterase deficiency No 06/20/24 08:24 You/Your Family Experience No 06/20/24 08:24 fever (hyperthermia) with Relationship Recent Exposure to Contagious No 06/20/24 08:27 Disease Does patient have nerve No 06/19/24 12:17 stimulator Patient instructed to have device shut off --Does patient have Pacemaker No 06/20/24 08:27 or ICD? When Was Last Pacemaker Check QUESTION #4 FULL TEXT: You/Your Family Experience fever (hyperthermia) with Anesthesia Last Oral Intake Last Oral intake: Last Oral Intake NPO since 05:00 06/20/24 08:27 Meds taken in AM with sips of No 06/20/24 08:27 water? Meds patient instructed to take am of surgery PONV PONV - photographic hand developer: PONV - photographic hand developer Female Yes 06/19/24 12:17 HX of Motion Sickness No 06/19/24 12:17 HX of N/V After Surgery No 06/19/24 12:17 Non-Smoker Yes 06/19/24 12:17 Duration of Surgery greater No 06/19/24 12:17 than 60 minutes Number of Risk Factors 2 06/19/24 12:17 PONV Score Moderate Risk 06/19/24 12:17 Height & Weight Height & Weight: Anesthesia: Height & Weight Height 5 ft 5.5 in 06/20/24 08:27 Weight: 54 kg 06/20/24 08:27 Body Mass Index (BMI) 19.5 06/20/24 08:27 Respiratory Assessment Respiratory Assessment - photographic hand developer: Respiratory Tract Infection Hx - photographic hand developer Hx Respiratory Tract Infection No 06/20/24 08:24 STOP Sleep Apnea STOP Sleep Apnea - photographic hand developer: STOP Sleep Apnea - photographic hand developer Hx Hypertension No 06/20/24 08:24 Hx Sleep Apnea No 06/20/24 08:24 CPAP No 06/20/24 08:24 BIPAP No 06/20/24 08:24 Do you snore loudly (louder No 06/20/24 08:24 than talking or can be heard Do you often feel tired/ No 06/20/24 08:24 fatigued/ sleepy during daytime? Has anyone observed you stop No 06/20/24 08:24 breathing during sleep? STOP Results Negative 06/20/24 08:24 QUESTION #5 FULL TEXT : Do you snore loudly (louder than talking or can be heard through closed doors)? 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 Specify any problems Hx of Preganancy in last 3 No 06/19/24 12:17 Months Nurse Filling Out Transfusion [facility] 06/19/24 12:17 & Questions: Date: 06/19/24 06/19/24 12:17 Time: 12:24 06/19/24 12:17 Patient unable to answer at this time (ie. confused, unrespo /Reproduction History /Reproductive History - photographic hand developer: /Reproductive Hx- photographic hand developer Hx Now Gestational Age (in weeks): EDC: Hx Hx Para Hx Section [facility] Medical History Wears glasses Cancer High cholesterol Non-smoker History of echocardiogram History of stress test History of fistula Acid reflux Rectal vaginal fistula Peripheral neuropathy Home Medications ?Medication ?Instructions ?Recorded ?Last Taken ?Type cholecalciferol (vitamin D3) 50 50 mcg PO .2x/week 04/24/24 06/15/24 History mcg (2,000 unit) capsule magnesium oxide 400 mg PO QDAY 04/24/24 06/15/24 History omega 7-zgo-hnx-fish oil 1,200 mg 1 cap PO QDAY 04/24/24 06/15/24 History (144 mg-216 mg) capsule (Fish Oil) Allergy/AdvReac Type Severity Reaction Status Date / Time No Known Allergies Allergy Verified 06/20/24 08:26 Family History Sister Cancer Lung Mother Alzheimer disease Surgical History History of bilateral cataract extraction Hx of colonoscopy History of dilation and curettage History of tubal ligation History of hysterectomy Social History household members: spouse current occupational status: retired Smoking Status: Never smoker alcohol intake: never substance use type: does not use what type of physical activity do you participate in: walking frequency: 1-2 times per week Review of Systems (Anesthesia) ROS Narrative System reviewed and no additional complaints, except as documented.
--- NOTE | 2024-06-20 09:30 | COLBX_PTH ---
PATIENT: BRANDON MONSIVAIS LOC: EN U#:[id number] AGE/SX: 68/F ROOM: RE06/20/[address]: Dr. Diana Bobby MD : 1955 BED: DIS: 06/20/2024 SPEC #: [id number] RECD: 06/20/24 11:14 STATUS: NANY RERoxana #: [id number] KENYA: 06/20/24 09:[address]: Diana Bobby DEPT: SURGICAL PATHOLOGY RECD BY: Anita Mendieta ENTERED: 06/20/24 11:52 SP TYPE: COLON BX OTHR DR: Dr. Selene Bridges, DO Tissues: Ascending colon Procedures: Surgery Specimen Level IV HEADER OPERATION: Colonoscopy and polyp PRE-OP DIAGNOSIS: Encounter for screening for malignant neoplasm of colon TISSUE SUBMITTED: Ascending colon polyp biopsy MICROSCOPIC DIAGNOSIS Ascending colon polyp, biopsy: Tubular adenoma. 06/21/2024 MICROSCOPIC DESCRIPTION Slides are reviewed. GROSS DESCRIPTION Received in fixative is one container labeled with the patient's name and designated Ascending colon polyp biopsy. The specimen consists of one irregular fragment of light dorado soft tissue that measures 0.3 x 0.3 x 0.1 cm. The specimen is totally submitted in one cassette. 06/20/2024 TC:1 CPT:09395
--- NOTE | 2024-06-20 10:54 | OP.CCLET_ITS ---
06/20/2024 Selene Bridges [address] [place] [address] Re : Colonoscopy procedure for Era Ileana Dear Dr. Bridges This procedure was performed on Thursday, June 20, 2024. My impressions and recommendations are as follows: Impressions : - Hemorrhoids found on perianal exam. - Non-bleeding external and internal hemorrhoids. - One less than 5 mm polyp in the ascending colon, removed with a cold biopsy forceps. Resected and retrieved. - The examination was otherwise normal. Recommendations : - Discharge patient to home. - Resume previous diet. - Continue present medications. - Await pathology results. - Repeat colonoscopy in 5 years for surveillance based on pathology results. My findings are described in the full procedure note, which is enclosed. If I can be of further assistance, please feel free to contact me at Doctor phone number(s): , Work: . Sincerely, MD Diana Regan MD 06/20/2024 10:54:35 AM This report has been signed electronically.
--- NOTE | 2024-06-20 10:54 | OP.COLON_ITS ---
Patient Name: Era Tejeda Procedure Date: 06/20/2024 10:23 AM Date of : 1955 Age: 68 Procedure: Colonoscopy Indications: Screening for colorectal malignant neoplasm Providers: Diana Bobby MD Referring MD: Selene Bridges Medicines: Monitored Anesthesia Care Patient Profile: This is a 68 year old female. Last Colonoscopy: 2012. Complications: No immediate complications. Procedure: Pre-Anesthesia Assessment: - Prior to the procedure, a History and Physical was performed, and patient medications and allergies were reviewed. The patient's tolerance of previous anesthesia was also reviewed. The risks and benefits of the procedure and the sedation options and risks were discussed with the patient. All questions were answered, and informed consent was obtained. Prior Anticoagulants: The patient has taken no anticoagulant or antiplatelet agents. ASA Grade Assessment: Per anesthesia. After reviewing the risks and benefits, the patient was deemed in satisfactory condition to undergo the procedure. After I obtained informed consent, the scope was passed under direct vision. Throughout the procedure, the patient's blood pressure, pulse, and oxygen saturations were monitored continuously. The Colonoscope was introduced through the anus and advanced to the cecum, identified by the appendiceal orifice, ileocecal valve and palpation. The colonoscopy was performed without difficulty. The patient tolerated the procedure well. The quality of the bowel preparation was good. Scope In: 10:32:47 AM Scope Withdrawal Time 0 hours 8 minutes 27 seconds Scope Out: 10:50:23 AM Total Procedure Duration Time 0 hours 17 minutes 36 seconds Findings: Hemorrhoids were found on perianal exam. Non-bleeding external and internal hemorrhoids were found. The hemorrhoids were small and Grade I (internal hemorrhoids that do not prolapse). A less than 5 mm polyp was found in the ascending colon. The polyp was sessile. The polyp was removed with a cold biopsy forceps. Resection and retrieval were complete. The exam was otherwise without abnormality. Impression: - Hemorrhoids found on perianal exam. - Non-bleeding external and internal hemorrhoids. - One less than 5 mm polyp in the ascending colon, removed with a cold biopsy forceps. Resected and retrieved. - The examination was otherwise normal. Recommendation: - Discharge patient to home. - Resume previous diet. - Continue present medications. - Await pathology results. - Repeat colonoscopy in 5 years for surveillance based on pathology results. Procedure Code(s): --- Professional --- 14151, PT, Colonoscopy, flexible; with biopsy, single or multiple Diagnosis Code(s): --- Professional --- Z12.11, Encounter for screening for malignant neoplasm of colon K64.0, First degree hemorrhoids D12.2, Benign neoplasm of ascending colon CPT copyright 2021 [employer]. All rights reserved. The codes documented in this report are preliminary and upon personalization specialist review may be revised to meet current compliance requirements. MD Diana Regan MD 06/20/2024 10:54:35 AM This report has been signed electronically. Number of Addenda: 0 Note Initiated On: 06/20/2024 10:23 AM
--- NOTE | 2024-06-20 11:00 | PCM.POST.ANE ---
Anesthesia: Postop Eval I Current Vital Signs Temperature: 97 F Pulse Rate: 57 Blood Pressure: 100/61 Respiratory Rate: 16 Pulse Ox: 100 Oxygen Delivery Method: Room Air Assessment Airway patent: Yes Spontaneous unlabored respirations: Yes Mental status: Awake and Calm nausea: No Vomiting: No Anesthesia Complication: No Fluid Hydration Crystalloid volume administer (ml): 40 Total IV fluid infused: 40 Progress Note Anesthesia document: Postop Eval 1 completed: Yes
--- NOTE | 2024-06-20 11:34 | PCM.POSTANE2 ---
Anesthesia Postop Eval I Sum Postop Eval Completion status Anesthesia document: Postop Eval 1 completed: Yes Anesthesia Postop Eval I Summary Anesthesia Postop Eval I Summary: Anesthesia Postop Eval I: Assessment Summary Airway patent Yes 06/20/24 11:01 [email or web address] Spontaneous unlabored Yes 06/20/24 11:01 [email or web address] respirations Mental status Awake,Calm 06/20/24 11:01 [email or web address] nausea No 06/20/24 11:01 [email or web address] Vomiting No 06/20/24 11:01 [email or web address] Anesthesia Postop Eval I: Fluid Summary Crystalloid volume administer 40 06/20/24 11:01 [email or web address] (ml) Colloids volume administered ( ml) Blood Product volume administered (ml) Total IV fluid infused 40 06/20/24 11:01 [email or web address] Anesthesia Postop Eval I: Summary Notes Anesthesia Complication No 06/20/24 11:01 [email or web address] Anesthesia Complication Comment: Post-operative progress note Anesthesia: Postop Eval II Evaluation Mental status: Awake Pain Level: 0 nausea: No Vomiting: No
== END 2024-06-20 11:48 | disposition home or self-care (01) ==
LOC: EN 08:10 → AC 08:11
PROVIDERS: PCP Family Medicine; Referring Provider Family Medicine; Visit Provider Surgery
PROC: 0DJD8ZZ Inspection of Lower Intestinal Tract, Via Natural or Artificial Opening Endoscopic (ICD-10-PCS; CPT 45378; principal; 2024-06-20 09:25)
DX: Z12.11 Encounter for screening for malignant neoplasm of colon (principal); Z90.710 Acquired absence of both cervix and uterus; E78.00 Pure hypercholesterolemia, unspecified; Z98.51 Tubal ligation status; Z98.41 Cataract extraction status, right eye; Z98.42 Cataract extraction status, left eye; K63.5 Polyp of colon; K64.4 Residual hemorrhoidal skin tags; K64.0 First degree hemorrhoids
CPT/HCPCS: 45380; 88305; A4216; J2405

== ENCOUNTER → 2025-03-26 | Outpatient (CLI) | payer MEDICARE, SELFPAY ==
[2025-03-26 12:28] LABS: Hematocrit 42.8 % (37-47); Hemoglobin 14.0 g/dL (12.0-15.0); Immature Granulocytes Count 0.000 X10^3/uL (0.0-0.0); Mean Corp Hgb Conc 32.7 g/dL (32-36); Mean Corpuscular Volume 96.4 fL (81-99); Mean Platelet Vol. 10.4 fl (6.2-12.0); NRBC Flagged by Analyzer 0 % (0-5); Platelet Count 231 K/mm3 (150-450); RBC Distribution Width CV 12.6 % (11.6-14.6); RBC Distribution Width SD 44.8 fl (35.1-43.9); Red Blood Count 4.44 M/mm3 (4.2-5.4); White Blood Count 4.4 K/mm3 (4.4-11.0)
[2025-03-26 13:15] LABS: AST(SGOT) 19 U/L (<=31); Alanine Aminotransfer ALT/SGPT 15 U/L (<=34); Albumin, Serum 4.5 g/dL (3.4-4.8); Alkaline Phosphatase 79 U/L (35-104); Anion Gap 10 (5-15); BUN 13 mg/dL (4-19); BUN/Creat Ratio 23.7 RATIO (10-20); Calcium,Total 9.7 mg/dL (7.6-11.0); Carbon Dioxide 26.1 mmol/L (21.0-32.0); Chloride 103 mmol/L (98-108); Cholesterol 254 mg/dL (<=200); Globulin 3.1 g/dL (2.2-4.2); Glucose 92 mg/dL (70-99); Low Density Lipoprotein Calc. 170 mg/dL; Potassium 3.9 mmol/L (3.3-5.1); Triglycerides 85 mg/dL; Very Low Density Lipoprotein 17 mg/dL (5-40); Vitamin D,25 Hydroxy 27.1 ng/mL (30-100); cholesterol:hdl ratio screen 3.65
[2025-03-26 13:35] LABS: LDH 209 U/L (84-246)
[2025-03-27 10:08] LABS: Cancer Antigen 125 2303 10.3 U/mL (0.0-38.1)
== END | disposition home or self-care (01) ==
LOC: BFHLAB 08:33
PROVIDERS: PCP Family Medicine; Visit Provider Family Medicine
DX: Z51.81 Encounter for therapeutic drug level monitoring (principal); E78.5 Hyperlipidemia, unspecified; E55.9 Vitamin D deficiency, unspecified; Z85.43 Personal history of malignant neoplasm of ovary
CPT/HCPCS: 36415; 80053; 80061; 82306; 83615; 85025; 86304